=== PATIENT | male | born 1970 | race Caucasian/White ===

== ENCOUNTER 2021-12-13 17:28 | Inpatient (IN) ==
[2021-12-13] MEDS ORDERED: IOPAMIDOL 100 ML BOTTLE IV ONE (17:29)
[2021-12-13] MEDS ORDERED: LACTATED RINGERS 1,000 ML IV ONE (17:48)
[2021-12-13 18:05] LABS: POC Calcium, Ionized 1.07 (1.16-1.32); POC Creatinine 1.2 (0.6-1.2); POC Potassium 4.8 (3.3-5.1)
--- NOTE | 2021-12-13 18:17 | Emergency Department Note ---
HPI General Chief complaint: Fall Stated complaint: fall Time Seen by Provider: 12/13/21 17:29 Source: patient and EMS Mode of arrival: EMS Limitations: no limitations History of Present Illness HPI Narrative: Narrative: Patient presents to the emergency department after ground-level fall. He reports he was plugging on his phone and fell back. He is complaining of lower back pain. Patient is morbidly obese he has diabetes, kidney disease, sleep apnea. Patient was unable to get up so he called EMS. Per EMS the patient was scattered and fecal material. Patient denies hitting his head or loss of consciousness he denies any extremity pain. Patient is hypoxic. He denies regular use of supplemental oxygen, he is supposed to wear CPAP at night for obstructive sleep apnea. Denies known reactive airway disease, CAD, CHF or venous thromboembolism. Related Data Home Medications Medication Instructions Recorded Confirmed calcitriol 0.25 mcg capsule 0.25 mcg PO QDAY cap 05/12/15 07/11/16 Previous Rx's Medication Instructions Recorded Accu-Chek Brigida Plus Meter #1 each NS 05/05/15 (blood-glucose meter) Accu-Chek Softclix Lancets #100 each NS 05/12/15 (lancets) pioglitazone 30 mg tablet 30 mg PO QDAY #90 tab 11/10/15 pravastatin 80 mg tablet 80 mg PO QHS 90 Days #90 tab 01/30/16 (Pravachol) blood sugar diagnostic (Accu-Chek #100 each 04/23/16 Brigida Plus test strp) febuxostat 40 mg tablet (Uloric) 40 mg PO QDAY 90 Days #90 tab 04/23/16 lisinopril 5 mg tablet (Zestril) 5 mg PO QDAY 90 Days #90 tab 04/23/16 magnesium oxide 400 mg (241.3 mg 400 mg PO QDAY #90 tab 04/23/16 magnesium) tablet potassium chloride 10 mEq 10 meq PO QDAY 90 Days #90 tab 04/23/16 tablet,extended release (Klor-Con) cyclobenzaprine 10 mg tablet 10 mg PO TID #20 tab 12/03/18 hydrocodone 5 mg-acetaminophen 325 1 tab PO Q4HP PRN #10 tab 12/03/18 mg tablet Allergies Allergy/AdvReac Type Severity Reaction Status Date / Time penicillin G [PENICILLIN G] Allergy Unknown RASH Verified 07/11/16 16:29 Review of Systems ROS ROS Narrative: Narrative: All systems ED: reviewed and negative except as stated. PFSH Narrative Patient History Narrative: Narrative: Medical/Surgical/Family History All Active Problems (Updated 12/14/21 @ 04:55 by Earl Orozco MD) Low back strain (Acute) Closed T12 fracture (Acute) Hypoxia (Acute) Obesity (Acute) Chronic kidney disease, stage III (moderate) (Chronic) Body mass index (BMI) of 50.0 to 59.9 in adult (Chronic) Hypomagnesemia (Chronic) Hypertensive renal disease (Chronic) Hypertension, essential (Chronic 08/28/12) Secondary hyperparathyroidism of renal origin (Chronic) Morbid obesity (Chronic 04/13/14) Hyperlipidemia (Chronic 08/28/12) Gout (Chronic) Explosive personality disorder (Chronic) Eczema (Chronic) Diabetes mellitus, type II (Chronic 08/28/12) Chronic kidney disease, stage III (moderate) (Chronic 08/28/12) Body mass index 50.0-59.9, adult (Chronic) Neuropathy (Chronic) Nuclear sclerosis (Chronic) Sleep apnea (Chronic) Vitamin D deficiency (Chronic 08/28/12) Bipolar disorder (Chronic) Back pain (Chronic 09/09/13) Anemia in chronic kidney disease (CKD) (Chronic 08/28/12) Medical History (Updated 12/14/21 @ 04:55 by Earl Orozco MD) Acute serous otitis media Anemia in chronic kidney disease (CKD) (08/28/12) Arthralgia Back pain (09/09/13) chr back pain, states started from the time of trauma in the clinic, Will get previous records, ref to PT if needed Bipolar disorder Body mass index (BMI) of 50.0 to 59.9 in adult Body mass index 50.0-59.9, adult Chronic kidney disease, stage III (moderate) (08/28/12) Diabetes mellitus, type II (08/28/12) Eczema Explosive personality disorder Gout Headache Hyperlipidemia (08/28/12) ldl 79, on pravastatin 80mg qhs, continue same, Hypertension, essential (08/28/12) Hypertensive renal disease Hypomagnesemia Leg fracture right Morbid obesity (04/13/14) Neuropathy Nuclear sclerosis Renal insufficiency (07/04/12) Secondary hyperparathyroidism of renal origin Sleep apnea Vitamin D deficiency (08/28/12) Family History (Updated 04/15/15 @ 14:26 by Nicole Cruz) Unknown Cardiac disease Social History Smoking Status: Never smoker Alcohol Intake Frequency: does not drink Substance Use: does not use Exam Narrative Narrative: Narrative: Vital signs noted General: Awake. Alert. No distress. HEENT: Atraumatic, pupils equal round reactive to light Neck: No cervical spinal tenderness in the midline Cardiovascular: RRR. No murmur. No rubs. No gallops. Respiratory: Distant breath sounds Gastrointestinal: Soft. No tenderness Musculoskeletal: Tenderness to the lower lumbar spine, bilateral paraspinal there is midline spinal tenderness as well Skin: No abrasions or lacerations General Limitations: no limitations Course Vital Signs Vital signs: Vital Signs Temperature 99.2 F H 12/13/21 17:30 Pulse Rate 94 H 12/13/21 17:30 Respiratory Rate 28 H 12/13/21 17:30 Blood Pressure 125/91 12/13/21 17:30 Pulse Oximetry (%) 82 L 12/13/21 17:30 Temperature 99.2 F H 12/13/21 17:30 Pulse Rate 29 L 12/14/21 04:13 Respiratory Rate 26 H 12/14/21 04:15 Blood Pressure 114/54 12/14/21 04:13 Pulse Oximetry (%) 97 12/14/21 04:16 MDM MDM Narrative Medical decision making narrative: Narrative: Patient presents with fall he was unable to get up. Upon arrival patient is hypoxic into the low 80s. Patient is morbidly obese. Differential includes but is not limited to CHF, COPD, obesity associated hypoventilation, pulmonary embolism, traumatic musculoskeletal or lung injury. Patient's labs were reviewed. Kidney function appears to be at about patient's baseline. Troponin is negative. CT scan of the brain was negative. Initially there was thoughts that the patient cannot go through the CT scanner. Finally they did bring the patient to the CT scanner his CT scan shows an acute T12 compression fracture that is mild. Patient has significant atelectasis there is no evidence of pulmonary embolism. No infiltrates. Patient's BNP was in the 900s. Patient has been requiring 5 L nasal cannula. Patient will be admitted to the hospitalist for further work-up and evaluation primarily of his hypoxia. Spinal injury is nonoperative and stable. Lab Data Result diagrams: 12/13/21 17:42 Labs: Lab Results 12/13/21 12/13/21 12/13/21 Range/Units 17:42 17:42 17:42 WBC 10.1 (4.5-11.0) K/mcL RBC 4.88 (4.63-6.08) M/mcL Hgb 15.0 (13.7-17.5) g/dL Hct 49.5 (40.1-51.0) % POC Hct (41-55) MCV 101.4 H (80.0-100.0) fL MCH 30.7 (26.0-34.0) pg MCHC 30.3 L (31.0-36.0) g/dL RDW 17.1 H (11.5-14.5) % Plt Count 339 (140-440) K/mcL MPV 8.7 (7.4-10.4) fL Neut % (Auto) 70.9 (38.0-78.0) % Lymph % (Auto) 22.2 (15.5-49.0) % [place] % (Auto) 5.4 (1.0-12.0) % Eos % (Auto) 1.1 (0.0-7.0) % Baso % (Auto) 0.4 (0.0-2.0) % Lymph # (Auto) 2.24 (1.50-4.80) K/mcL [place] # (Auto) 0.54 (0.10-0.90) K/mcL Eos # (Auto) 0.11 (0.00-0.70) K/mcL Baso # (Auto) 0.04 (0.00-0.30) K/mcL Absolute Neutrophils 7.14 (1.80-8.00) K/mcL PT 12.8 (11.9-14.5) sec INR 0.9 (0.9-1.1) D-Dimer (0.27-0.50) ug/mL ABG Methemoglobin (0.4-1.5) % VBG pH (7.32-7.42) U VBG pCO2 (41.0-51.0) mmHg VBG pO2 (25.0-40.0) mmHg VBG HCO3 (24.0-28.0) mmol/L VBG Total CO2 (25.0-29.0) mmol/L VBG O2 Saturation (40.0-70.0) % VBG Base Excess (-2-3) Carboxyhemoglobin (0.0-1.5) % THgb Total Hemoglobin (13.5-16.5) gm/Dl POC Sodium (133-145) POC Potassium (3.3-5.1) POC Chloride (96-108) POC Total CO2 (22-30) POC BUN (6-20) POC Creatinine (0.6-1.2) POC Glucose (70-105) POC WB Ioniz Calcium (1.16-1.32) Total Bilirubin 0.5 (0.1-1.0) mg/dL Direct Bilirubin < 0.2 (0-0.3) mg/dL AST 24 (<40) U/L ALT 18 (<40) U/L Alkaline Phosphatase 101 (39-117) U/L Troponin T (<0.03) ng/mL NT-Pro-B Natriuret Pep 990.8 H (<125.0) pg/mL Total Protein 7.7 (5.9-8.4) gm/dL Albumin 3.6 (3.2-5.2) gm/dL Globulin 4.1 H (2.2-3.7) gm/dL Urine Color Urine Appearance (Clear) Urine pH (5.0-9.0) Ur Specific [place] (1.000-1.035) Urine Protein (Negative) mg/dL Urine Glucose (UA) (Negative) mg/dL Urine Ketones (Negative) mg/dL Urine Occult Blood (Negative) mg/dL Urine Nitrate (Negative) Urine Bilirubin (Negative) mg/dL Urine Urobilinogen mg/dL Ur Leukocyte Esterase (Negative) /uL Urine RBC (0-3) /hpf Urine WBC (0-4) /hpf Ur Squamous Epith Cells (0-4) /hpf Urine Bacteria (0) /hpf Urine Mucus (None) /hpf Ur Culture Indicated? POC Troponin I 12/13/21 12/13/21 12/13/21 Range/Units 17:42 17:42 17:42 WBC (4.5-11.0) K/mcL RBC (4.63-6.08) M/mcL Hgb (13.7-17.5) g/dL Hct (40.1-51.0) % POC Hct (41-55) MCV (80.0-100.0) fL MCH (26.0-34.0) pg MCHC (31.0-36.0) g/dL RDW (11.5-14.5) % Plt Count (140-440) K/mcL MPV (7.4-10.4) fL Neut % (Auto) (38.0-78.0) % Lymph % (Auto) (15.5-49.0) % [place] % (Auto) (1.0-12.0) % Eos % (Auto) (0.0-7.0) % Baso % (Auto) (0.0-2.0) % Lymph # (Auto) (1.50-4.80) K/mcL [place] # (Auto) (0.10-0.90) K/mcL Eos # (Auto) (0.00-0.70) K/mcL Baso # (Auto) (0.00-0.30) K/mcL Absolute Neutrophils (1.80-8.00) K/mcL PT (11.9-14.5) sec INR (0.9-1.1) D-Dimer 4.99 H (0.27-0.50) ug/mL ABG Methemoglobin 0.3 L (0.4-1.5) % VBG pH 7.35 (7.32-7.42) U VBG pCO2 58.9 H (41.0-51.0) mmHg VBG pO2 82.6 H (25.0-40.0) mmHg VBG HCO3 31.8 H (24.0-28.0) mmol/L VBG Total CO2 33.6 H (25.0-29.0) mmol/L VBG O2 Saturation 90.7 H (40.0-70.0) % VBG Base Excess 4 H (-2-3) Carboxyhemoglobin 4.6 H (0.0-1.5) % THgb Total Hemoglobin 16.0 (13.5-16.5) gm/Dl POC Sodium (133-145) POC Potassium (3.3-5.1) POC Chloride (96-108) POC Total CO2 (22-30) POC BUN (6-20) POC Creatinine (0.6-1.2) POC Glucose (70-105) POC WB Ioniz Calcium (1.16-1.32) Total Bilirubin (0.1-1.0) mg/dL Direct Bilirubin (0-0.3) mg/dL AST (<40) U/L ALT (<40) U/L Alkaline Phosphatase (39-117) U/L Troponin T < 0.01 (<0.03) ng/mL NT-Pro-B Natriuret Pep (<125.0) pg/mL Total Protein (5.9-8.4) gm/dL Albumin (3.2-5.2) gm/dL Globulin (2.2-3.7) gm/dL Urine Color Urine Appearance (Clear) Urine pH (5.0-9.0) Ur Specific [place] (1.000-1.035) Urine Protein (Negative) mg/dL Urine Glucose (UA) (Negative) mg/dL Urine Ketones (Negative) mg/dL Urine Occult Blood (Negative) mg/dL Urine Nitrate (Negative) Urine Bilirubin (Negative) mg/dL Urine Urobilinogen mg/dL Ur Leukocyte Esterase (Negative) /uL Urine RBC (0-3) /hpf Urine WBC (0-4) /hpf Ur Squamous Epith Cells (0-4) /hpf Urine Bacteria (0) /hpf Urine Mucus (None) /hpf Ur Culture Indicated? POC Troponin I 12/13/21 12/13/21 12/13/21 Range/Units 18:00 18:06 22:25 WBC (4.5-11.0) K/mcL RBC (4.63-6.08) M/mcL Hgb (13.7-17.5) g/dL Hct (40.1-51.0) % POC Hct 49.0 (41-55) MCV (80.0-100.0) fL MCH (26.0-34.0) pg MCHC (31.0-36.0) g/dL RDW (11.5-14.5) % Plt Count (140-440) K/mcL MPV (7.4-10.4) fL Neut % (Auto) (38.0-78.0) % Lymph % (Auto) (15.5-49.0) % [place] % (Auto) (1.0-12.0) % Eos % (Auto) (0.0-7.0) % Baso % (Auto) (0.0-2.0) % Lymph # (Auto) (1.50-4.80) K/mcL [place] # (Auto) (0.10-0.90) K/mcL Eos # (Auto) (0.00-0.70) K/mcL Baso # (Auto) (0.00-0.30) K/mcL Absolute Neutrophils (1.80-8.00) K/mcL PT (11.9-14.5) sec INR (0.9-1.1) D-Dimer (0.27-0.50) ug/mL ABG Methemoglobin (0.4-1.5) % VBG pH (7.32-7.42) U VBG pCO2 (41.0-51.0) mmHg VBG pO2 (25.0-40.0) mmHg VBG HCO3 (24.0-28.0) mmol/L VBG Total CO2 (25.0-29.0) mmol/L VBG O2 Saturation (40.0-70.0) % VBG Base Excess (-2-3) Carboxyhemoglobin (0.0-1.5) % THgb Total Hemoglobin (13.5-16.5) gm/Dl POC Sodium 143 (133-145) POC Potassium 4.8 (3.3-5.1) POC Chloride 96 (96-108) POC Total CO2 38.0 H (22-30) POC BUN 17 (6-20) POC Creatinine 1.2 (0.6-1.2) POC Glucose 173 H (70-105) POC WB Ioniz Calcium 1.07 L (1.16-1.32) Total Bilirubin (0.1-1.0) mg/dL Direct Bilirubin (0-0.3) mg/dL AST (<40) U/L ALT (<40) U/L Alkaline Phosphatase (39-117) U/L Troponin T (<0.03) ng/mL NT-Pro-B Natriuret Pep (<125.0) pg/mL Total Protein (5.9-8.4) gm/dL Albumin (3.2-5.2) gm/dL Globulin (2.2-3.7) gm/dL Urine Color Yellow Urine Appearance Hazy A (Clear) Urine pH 8.0 (5.0-9.0) Ur Specific [place] 1.017 (1.000-1.035) Urine Protein 30 A (Negative) mg/dL Urine Glucose (UA) Negative (Negative) mg/dL Urine Ketones Negative (Negative) mg/dL Urine Occult Blood Negative (Negative) mg/dL Urine Nitrate Negative (Negative) Urine Bilirubin Negative (Negative) mg/dL Urine Urobilinogen 2.0 A mg/dL Ur Leukocyte Esterase Negative (Negative) /uL Urine RBC 1 (0-3) /hpf Urine WBC 2 (0-4) /hpf Ur Squamous Epith Cells 4 (0-4) /hpf Urine Bacteria None (0) /hpf Urine Mucus Few A (None) /hpf Ur Culture Indicated? No POC Troponin I 0.01 ED POC Tests ED POC Tests: MATTHEW - SARS Antigen Negative EKG Data EKG #1: EKG attestation: Yes I reviewed and interpreted this EKG., Yes There are no EKG findings of acute coronary syndrome and Yes This EKG will be read by cigarette paper tester EKG results narrative: EKG per my interpretation shows a sinus rhythm with a heart rate of 84, normal axis, delayed R wave progression no criteria for STEMI there is T wave inversions in the anterior leads Discharge Plan Patient/Caregiver Discharge Instructions Pt seen by [facility] VAT TENDER/PA only: No Clinical Impression: Closed T12 fracture, Hypoxia, Obesity Patient Disposition: Xfer As Inpt ([facility]) Condition: Serious Discharge Date/Time: 12/14/21 03:38 Discharge Comment: to room 118 @[id number]
[2021-12-13 18:18] LABS: ABG Methemoglobin 0.3 % (0.4-1.5); VBG Base Excess 4 (-2-3); VBG HCO3 31.8 mmol/L (24.0-28.0); VBG Oxygen Saturation 90.7 % (40.0-70.0); VBG PCO2 58.9 mmHg (41.0-51.0); VBG PH 7.35 U (7.32-7.42); VBG PO2 82.6 mmHg (25.0-40.0); VBG Total CO2 33.6 mmol/L (25.0-29.0)
[2021-12-13 18:22] LABS: Basophils # (Auto) 0.04 K/mcL (0.00-0.30); Basophils % (Auto) 0.4 % (0.0-2.0); Eosinophils # (Auto) 0.11 K/mcL (0.00-0.70); Eosinophils % (Auto) 1.1 % (0.0-7.0); Hematocrit 49.5 % (40.1-51.0); Lymphocytes # (Auto) 2.24 K/mcL (1.50-4.80); Lymphocytes % (Auto) 22.2 % (15.5-49.0); Mean Cell Volume 101.4 fL (80.0-100.0); Mean Corpuscular HGB Conc 30.3 g/dL (31.0-36.0); Mean Platelet Volume 8.7 fL (7.4-10.4); Monocytes # (Auto) 0.54 K/mcL (0.10-0.90); Monocytes % (Auto) 5.4 % (1.0-12.0); Neutrophils % (Auto) 70.9 % (38.0-78.0); Platelet Count 339 K/mcL (140-440); RBC 4.88 M/mcL (4.63-6.08); Red Cell Distribution Width 17.1 % (11.5-14.5); WBC 10.1 K/mcL (4.5-11.0)
[2021-12-13 18:43] LABS: proBNP 990.8 pg/mL (<125.0)
[2021-12-13 18:45] LABS: ALT/SGPT 18 U/L (<40); AST/SGOT 24 U/L (<40); Albumin 3.6 gm/dL (3.2-5.2); Alkaline Phosphatase 101 U/L (39-117); Bilirubin,Direct < 0.2 mg/dL (0-0.3); Bilirubin,Total 0.5 mg/dL (0.1-1.0); Globulin 4.1 gm/dL (2.2-3.7)
[2021-12-13 20:48] LABS: INR 0.9 (0.9-1.1); Prothrombin Time 12.8 sec (11.9-14.5)
[2021-12-13 23:40] LABS: Appearance,Urine HAZY (Clear); Bilirubin,Urine Negative (Negative); Color,Urine YELLOW; Culture Indicated,Urine No; Glucose,Urine (UA) Negative (Negative); Ketones,Urine Negative (Negative); Leukocyte Esterase,Urine Negative /uL (Negative); Mucus,Urine FEW /hpf; Nitrate,Urine Negative (Negative); Protein,Urine 30 mg/dL (Negative); Specific Gravity,Urine 1.017 (1.000-1.035); Urine Blood Negative (Negative); Urine RBC 1 /hpf (0-3); Urine Squamous Epithelial Cell 4 /hpf (0-4); Urine WBC 2 /hpf (0-4)
--- NOTE | 2021-12-14 00:56 | XRay Report ---
CLINICAL INFORMATION: Trauma-fall COMPARISON: None. FINDINGS: The lumbar spine is normal in curvature and alignment. Mild acute T12 compression fracture features 20% loss of vertebral height. Fracture involves predominantly the inferior endplate. Alignment is anatomic. Disks maintain normal height. SI joints are normal. No soft tissue abnormality. IMPRESSION: Mild acute T12 compression fracture. Anatomic alignment. Interpreted and Authenticated by: Davide Fontaine 12/14/21
--- NOTE | 2021-12-14 01:02 | XRay Report ---
CLINICAL INFORMATION: Trauma-fall COMPARISON: None. TECHNIQUE: Portable FINDINGS: The heart size, mediastinum and pulmonary vessels are unremarkable. Moderate extrapleural hematoma seen over the lateral left mid and lower thorax. Moderate vague airspace disease throughout the left lung could indicate aspiration or contusion. Subsegmental atelectasis seen in the right lung apex. No fracture identified. IMPRESSION: Moderate (12 cm) extrapleural hematoma in the left lateral left mid and lower thorax. Vague airspace disease throughout the left lung could represent aspiration or contusion. Interpreted and Authenticated by: Davide Fontaine 12/14/21
--- NOTE | 2021-12-14 01:07 | Cat Scan Report ---
CLINICAL INFORMATION: Trauma COMPARISON: None. TECHNIQUE: 2.5 mm helical slices were obtained in the skull base to vertex. Following reconstruction, axial reformatted images were reviewed at bone and parenchymal windows. The exam was performed using radiation dose optimization techniques including, but not limited to, automated exposure control, adjustment of the mA and/or kV according to patient size and use of iterative reconstruction technique. FINDINGS: The ventricles, sulci, fissures, and cisterns are mildly enlarged compatible with mild atrophy more than expected for age.. No extra-axial fluid collections are identified. Vague 16 mm low-attenuation region in the deep posterior left frontal white matter is likely ischemic The cerebrum, brainstem and cerebellum are, otherwise, unremarkable. There is no evidence of hemorrhage, mass effect, or edema. Bone windows show no osseous abnormality. IMPRESSION: Mild atrophy. Small region of ischemia in the posterior deep left frontal white matter. No intracerebral hemorrhage or other posttraumatic change Interpreted and Authenticated by: Davide Fontaine 12/14/21
--- NOTE | 2021-12-14 02:07 | Cat Scan Report ---
CLINICAL INFORMATION: Trauma-fall COMPARISON: Abdomen and pelvic CT 12/03/2018 TECHNIQUE: Following enteric contrast, 80 cc of Isovue-370 were injected intravenously, and 60 seconds later, 0.625 mm helical slices were obtained from the mid heart through the subtrochanteric regions. Following reconstruction, 2.5 mm sagittal, coronal and axial reformatted images were processed and reviewed at bone, lung and soft tissue windows. Five minutes later, 0.625 mm helical slices were obtained from the mid heart through the kidneys and viewed at soft tissue windows.The exam was performed using radiation dose optimization techniques including, but not limited to, automated exposure control, adjustment of the mA and/or kV according to patient size and use of iterative reconstruction technique. FINDINGS: The lung bases show subsegmental atelectasis. No effusions. The visualized heart is grossly normal. Abdominal images show the gallbladder and bile ducts, liver, adrenal glands, spleen, pancreas and aorta, including aortic branches, are normal in size, configuration and attenuation without focal lesion. There is no free air, free fluid or adenopathy. Severe atrophy of the left kidney. On today's examination, it is 5.4 cm in length. On the 2019 exam, it was 5.6 cm in length. There has been slight progression. Right kidney is lower limits of normal in size 9 cm. Small cysts in the right kidney are stable. Pelvic images show normal urinary bladder, prostate and seminal vesicles.. The stomach, small bowel, appendix region and large bowel are grossly normal. Bone windows mild acute T12 compression fracture. This involves the inferior endplate. There is no extension into the pedicles and facets or the remainder the posterior, since appears to be stable. IMPRESSION: 1. No intra-abdominal posttraumatic change. 2. Mild acute T12 compression fracture with 10% loss of vertebral height. There is no extension into the pedicles or posterior elements. This appears to be stable and would normally be treated nonsurgically. 3. Severe atrophy of the left kidney which has worsened slightly since the comparison examination three years ago. Right kidney at the lower limits of normal in size. Interpreted and Authenticated by: Davide Fontaine 12/14/21
--- NOTE | 2021-12-14 02:11 | Cat Scan Report ---
CLINICAL INFORMATION: Trauma COMPARISON: None. TECHNIQUE: 80ml of Isovue-370 were injected intravenously. Using SmartPrep to maximize pulmonary artery opacification, .625mm helical slices were obtained from the lung apices through the lung bases. Following reconstruction, 2.5 mm sagittal, coronal, and axial reformations were processed. The exam was reviewed at mediastinal, lung, and bone windows. The exam was performed using radiation dose optimization techniques including, but not limited to, automated exposure control, adjustment of the mA and/or kV according to patient size and use of iterative reconstruction technique. FINDINGS: Pulmonary parenchymal windows moderate subsegmental atelectasis in the left lower lobe and mild subsegmental atelectasis in the inferior right lower lobe. There is complete atelectasis of the apical posterior segment of the right upper lobe. There are no effusions or pneumothorax. Moderate extrapleural fat is noted bilaterally particularly in the left lower lobe region. This mimiced an extrapleural hematoma on the plain film. There is no evidence of hemorrhage. Mediastinal windows show the heart is grossly normal in size and configuration. The pulmonary arteries are normal diameter and well-opacified without evidence of embolus. Thoracic aorta is also normal diameter and well-opacified. There is no adenopathy in the mediastinal, hilar or axillary regions. Esophagus is grossly normal. The thyroid is unremarkable. Bones and soft tissues the chest wall are normal. Images through the superior abdomen are unremarkable. IMPRESSION: 1. No acute posttraumatic change. Specifically, no evidence of extrapleural hematoma in the left mid and lower thorax which was suspected on plain film. The patient has extensive extrapleural fat which created increased density in this region. 2. Complete atelectasis in the posterior segment right upper lobe. Subsegmental atelectasis both posterior lower lobes. Interpreted and Authenticated by: Davide Fontaine 12/14/21
[2021-12-14] MEDS ORDERED: ONDANSETRON 4 MG/2 ML VIAL IV PRN (02:33)
[2021-12-14] MEDS ORDERED: ACETAMINOPHEN 325 MG TABLET PO PRN (02:33)
--- NOTE | 2021-12-14 07:00 | EKG ---
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 Measurements Intervals [place] Rate: 84 P: 159 HI: 97 QRS: 3 QRSD: 88 T: 30 QT: 374 QTc: 443 Interpretive Statements Sinus or ectopic atrial rhythm Short HI interval Low voltage, precordial leads Nonspecific T abnormalities, anterior leads Electronically Signed On 12-14-2021 6:59:45 PDT by Emigdio Doyle D.O. /store/[id number]
[2021-12-14] MEDS ORDERED: DEXTROSE 50% 50 ML VIAL IV PRN (08:58)
[2021-12-14] MEDS ORDERED: DEXTROSE 31 GM ORAL.SUSP PO PRN (08:58)
--- NOTE | 2021-12-14 09:11 | Internal Med History&Physical ---
HPI History of Present Illness Patient information: Note initiated : 12/14/21 at 9:10 am Service Date, if different from initiated Date: [] Patient: Gary Mahmood a 51 y/o M admitted on 12/14/21 for fall. Chief Complaint: [] History of present illness: Mr. Mahmood is a 51 year old male with a history of hypertension, hyperlipidemia, type 2 diabetes mellitus, chronic kidney disease stage III, obesity, obstructive sleep apnea currently not compliant with CPAP, probable obesity hypoventilation syndrome who fell and was not able to get up. The patient presented to the emergency department where he was found to have an ox requirement of 5 L/min. Work-up included a CTA chest and CT abdomen pelvis which did not show any evidence of a pulmonary embolus or intra abdominal posttraumatic changes however did show a mild acute T12 compression fracture with 10% loss of vertebral height as well as complete atelectasis in the posterior segment of the right upper lobe and subsegmental atelectasis in both posterior lower lobes. The CT scans also showed atrophy of the left kidney which is not new however progressed since the last available CT image 3 years prior. The patient was admitted for a new oxygen requirement, his oxygen requirement was weaned down to 3.5 L/min. A venous blood gas revealed a pH of 7.35, PCO2 of 58.9. the patient says that he has not been using his CPAP machine because there are not enough electrical outlets in the apartment where he is living. The patient does have significant back pain in the T12 area which is more painful when he takes deep breathing. Review of systems Constitutional: no fever, fatigue, or weight loss Eyes: no vision changes or pain Cardiovascular: no chest pain, no palpitations Respiratory: Dyspnea on exertion, pleuritic back pain. Gastrointestinal: no abdominal pain, no nausea, vomiting, or diarrhea Genitourinary: no dysuria or difficulty voiding Musculoskeletal: Positive for back pain in the T12 area. Integumentary: no skin lesion or wound Neurological: no focal weakness or numbness Psychiatric: no anxiety or depression Physical exam General: Morbidly obese male in no apparent distress Head: Atraumatic, normal inspection. Eyes: normal appearance, no scleral icterus. Neck: full ROM Respiratory: Nasal cannula oxygen, no respiratory distress. Cardiovascular: normal rate and rhythm, S1, S2. GI/Abdominal: soft, nontender, no guarding. Extremities: Tenderness to palpation in mid back region. Neurological: CN II-XII intact, intact motor, intact sensation. Psychiatric: normal mood. Skin: warm, normal color PFSH PFSH All Active Problems (Updated 12/14/21 @ 04:55 by Earl Orozco MD) Low back strain (Acute) Closed T12 fracture (Acute) Hypoxia (Acute) Obesity (Acute) Chronic kidney disease, stage III (moderate) (Chronic) Body mass index (BMI) of 50.0 to 59.9 in adult (Chronic) Hypomagnesemia (Chronic) Hypertensive renal disease (Chronic) Hypertension, essential (Chronic 08/28/12) Secondary hyperparathyroidism of renal origin (Chronic) Morbid obesity (Chronic 04/13/14) Hyperlipidemia (Chronic 08/28/12) Gout (Chronic) Explosive personality disorder (Chronic) Eczema (Chronic) Diabetes mellitus, type II (Chronic 08/28/12) Chronic kidney disease, stage III (moderate) (Chronic 08/28/12) Body mass index 50.0-59.9, adult (Chronic) Neuropathy (Chronic) Nuclear sclerosis (Chronic) Sleep apnea (Chronic) Vitamin D deficiency (Chronic 08/28/12) Bipolar disorder (Chronic) Back pain (Chronic 09/09/13) Anemia in chronic kidney disease (CKD) (Chronic 08/28/12) Medical History (Updated 12/14/21 @ 04:55 by Earl Orozco MD) Acute serous otitis media Anemia in chronic kidney disease (CKD) (08/28/12) Arthralgia Back pain (09/09/13) chr back pain, states started from the time of trauma in the clinic, Will get previous records, ref to PT if needed Bipolar disorder Body mass index (BMI) of 50.0 to 59.9 in adult Body mass index 50.0-59.9, adult Chronic kidney disease, stage III (moderate) (08/28/12) Diabetes mellitus, type II (08/28/12) Eczema Explosive personality disorder Gout Headache Hyperlipidemia (08/28/12) ldl 79, on pravastatin 80mg qhs, continue same, Hypertension, essential (08/28/12) Hypertensive renal disease Hypomagnesemia Leg fracture right Morbid obesity (04/13/14) Neuropathy Nuclear sclerosis Renal insufficiency (07/04/12) Secondary hyperparathyroidism of renal origin Sleep apnea Vitamin D deficiency (08/28/12) Family History (Updated 04/15/15 @ 14:26 by Nicole Cruz) Unknown Cardiac disease Social History marital status: single alcohol intake frequency: does not drink substance use type: does not use MEDS/ALLERGIES Home Medications and Allergies Home Medications Medication Instructions Recorded Confirmed Type Accu-Chek Brigida Plus Meter #1 each NS 05/05/15 07/11/16 Rx (blood-glucose meter) Accu-Chek Softclix Lancets #100 each NS 05/12/15 07/11/16 Rx (lancets) calcitriol 0.25 mcg capsule 0.25 mcg PO QDAY cap 05/12/15 07/11/16 History pioglitazone 30 mg tablet 30 mg PO QDAY #90 tab 11/10/15 07/11/16 Rx pravastatin 80 mg tablet 80 mg PO QHS 90 Days #90 tab 01/30/16 07/11/16 Rx (Pravachol) blood sugar diagnostic (Accu-Chek #100 each 04/23/16 07/11/16 Rx Brigida Plus test strp) febuxostat 40 mg tablet (Uloric) 40 mg PO QDAY 90 Days #90 tab 04/23/16 07/11/16 Rx lisinopril 5 mg tablet (Zestril) 5 mg PO QDAY 90 Days #90 tab 04/23/16 07/11/16 Rx magnesium oxide 400 mg (241.3 mg 400 mg PO QDAY #90 tab 04/23/16 07/11/16 Rx magnesium) tablet potassium chloride 10 mEq 10 meq PO QDAY 90 Days #90 tab 04/23/16 07/11/16 Rx tablet,extended release (Klor-Con) cyclobenzaprine 10 mg tablet 10 mg PO TID #20 tab 12/03/18 Rx hydrocodone 5 mg-acetaminophen 325 1 tab PO Q4HP PRN #10 tab 12/03/18 Rx mg tablet Allergies Allergy/AdvReac Type Severity Reaction Status Date / Time penicillin G [PENICILLIN G] Allergy Unknown RASH Verified 07/11/16 16:29 EXAM Constitutional Vitals: Temp Pulse Resp BP Pulse Ox 97.4 F 92 H 24 H 114/63 94 12/14/21 07:57 12/14/21 07:57 12/14/21 07:57 12/14/21 07:57 12/14/21 07:57 DATA Data Completed and Pending Labs: Labs from last 24 hours 12/13/21 12/13/21 12/13/21 22:25 18:06 18:00 WBC RBC Hgb Hct POC Hct 49.0 MCV MCH MCHC RDW Plt Count MPV Neut % (Auto) Lymph % (Auto) [place] % (Auto) Eos % (Auto) Baso % (Auto) Lymph # (Auto) [place] # (Auto) Eos # (Auto) Baso # (Auto) Absolute Neutrophils PT INR D-Dimer ABG Methemoglobin VBG pH VBG pCO2 VBG pO2 VBG HCO3 VBG Total CO2 VBG O2 Saturation VBG Base Excess Carboxyhemoglobin Total Hemoglobin POC Sodium 143 POC Potassium 4.8 POC Chloride 96 POC Total CO2 38.0 H POC BUN 17 POC Creatinine 1.2 POC Glucose 173 H POC WB Ioniz Calcium 1.07 L Total Bilirubin Direct Bilirubin AST ALT Alkaline Phosphatase Troponin T NT-Pro-B Natriuret Pep Total Protein Albumin Globulin Urine Color Yellow Urine Appearance Hazy A Urine pH 8.0 Ur Specific [place] 1.017 Urine Protein 30 A Urine Glucose (UA) Negative Urine Ketones Negative Urine Occult Blood Negative Urine Nitrate Negative Urine Bilirubin Negative Urine Urobilinogen 2.0 A Ur Leukocyte Esterase Negative Urine RBC 1 Urine WBC 2 Ur Squamous Epith Cells 4 Urine Bacteria None Urine Mucus Few A Ur Culture Indicated? No POC Troponin I 0.01 12/13/21 12/13/21 12/13/21 17:42 17:42 17:42 WBC RBC Hgb Hct POC Hct MCV MCH MCHC RDW Plt Count MPV Neut % (Auto) Lymph % (Auto) [place] % (Auto) Eos % (Auto) Baso % (Auto) Lymph # (Auto) [place] # (Auto) Eos # (Auto) Baso # (Auto) Absolute Neutrophils PT INR D-Dimer 4.99 H ABG Methemoglobin 0.3 L VBG pH 7.35 VBG pCO2 58.9 H VBG pO2 82.6 H VBG HCO3 31.8 H VBG Total CO2 33.6 H VBG O2 Saturation 90.7 H VBG Base Excess 4 H Carboxyhemoglobin 4.6 H Total Hemoglobin 16.0 POC Sodium POC Potassium POC Chloride POC Total CO2 POC BUN POC Creatinine POC Glucose POC WB Ioniz Calcium Total Bilirubin Direct Bilirubin AST ALT Alkaline Phosphatase Troponin T < 0.01 NT-Pro-B Natriuret Pep Total Protein Albumin Globulin Urine Color Urine Appearance Urine pH Ur Specific [place] Urine Protein Urine Glucose (UA) Urine Ketones Urine Occult Blood Urine Nitrate Urine Bilirubin Urine Urobilinogen Ur Leukocyte Esterase Urine RBC Urine WBC Ur Squamous Epith Cells Urine Bacteria Urine Mucus Ur Culture Indicated? POC Troponin I 12/13/21 12/13/21 12/13/21 17:42 17:42 17:42 WBC 10.1 RBC 4.88 Hgb 15.0 Hct 49.5 POC Hct MCV 101.4 H MCH 30.7 MCHC 30.3 L RDW 17.1 H Plt Count 339 MPV 8.7 Neut % (Auto) 70.9 Lymph % (Auto) 22.2 [place] % (Auto) 5.4 Eos % (Auto) 1.1 Baso % (Auto) 0.4 Lymph # (Auto) 2.24 [place] # (Auto) 0.54 Eos # (Auto) 0.11 Baso # (Auto) 0.04 Absolute Neutrophils 7.14 PT 12.8 INR 0.9 D-Dimer ABG Methemoglobin VBG pH VBG pCO2 VBG pO2 VBG HCO3 VBG Total CO2 VBG O2 Saturation VBG Base Excess Carboxyhemoglobin Total Hemoglobin POC Sodium POC Potassium POC Chloride POC Total CO2 POC BUN POC Creatinine POC Glucose POC WB Ioniz Calcium Total Bilirubin 0.5 Direct Bilirubin < 0.2 AST 24 ALT 18 Alkaline Phosphatase 101 Troponin T NT-Pro-B Natriuret Pep 990.8 H Total Protein 7.7 Albumin 3.6 Globulin 4.1 H Urine Color Urine Appearance Urine pH Ur Specific [place] Urine Protein Urine Glucose (UA) Urine Ketones Urine Occult Blood Urine Nitrate Urine Bilirubin Urine Urobilinogen Ur Leukocyte Esterase Urine RBC Urine WBC Ur Squamous Epith Cells Urine Bacteria Urine Mucus Ur Culture Indicated? POC Troponin I A/P Narrative A/P Narrative: Assessment: 51 year old male with a history of hypertension, hyperlipidemia, type 2 diabetes mellitus, chronic kidney disease stage III, obesity, obstructive sleep apnea currently not compliant with CPAP, probable obesity hypoventilation syndrome who had a fall and was not able to get up, the patient was brought to the emergency department where he was found to have a acute T12 compression fracture and a new oxygen requirement. The cause of hypoxia is likely atelectasis related to restrictive lung disease secondary to morbid obesity and painful respiration secondary to the acute T12 compression fracture. No evidence of an infectious process, no evidence of a pulmonary embolus on CTA chest. Does not appear to be in congestive heart failure. #Acute hypoxic respiratory failure likely due to atelectasis #Acute T12 compression fracture #Hypercapnic respiratory failure, likely chronic #Obesity hypoventilation syndrome #Severe obstructive sleep apnea, currently not compliant with CPAP #Type 2 diabetes mellitus #Essential hypertension #Chronic kidney disease stage III, stable #Obesity BMI 63 Plan -BiPAP today to CPAP with naps and bedtime. -Oxygen supplementation, wean as able. -Nonopioid analgesics for now, may need to add opioids. -Repeat VBG after BiPAP. -Follow-up pending [place] PCR. -Correction Humalog SSImedium. -Home medication reconciliation. -Consider transthoracic echocardiogram. -Consistent carbohydrate diet. -PT consult, consider TLSO brace. -DVT prophylaxis: Lovenox -CODE STATUS: Full -Disposition: TBD Time Spent With Patient Time: Total time spent is greater than 50% in coordination of care (as documented) at patient's floor/unit and/or counseling patient: QUALITY VTE Deep Vein Thrombosis/Pulmonary Embolism Present on Admission: No
[2021-12-14] MEDS: ACETAMINOPHEN 500 MG TABLET PO SCH ×2 (09:19→16:17)
[2021-12-14] MEDS: KETOROLAC 30 MG/ML VIAL IV PRN ×2 (09:24→16:34)
[2021-12-14] MEDS: ENOXAPARIN 40 MG/0.4 ML SYRINGE SQ SCH ×2 (10:50→20:22)
[2021-12-14] MEDS: INSULIN LISPRO 1 UNIT/0.01 ML UNIT SQ SCH ×3 (11:52→20:23)
[2021-12-14 14:38] LABS: ABG Methemoglobin 0.4 % (0.4-1.5); Total Hemoglobin 14.9 gm/Dl (13.5-16.5); VBG Base Excess 8 (-2-3); VBG HCO3 38.4 mmol/L (24.0-28.0); VBG PCO2 81.6 mmHg (41.0-51.0); VBG PH 7.29 U (7.32-7.42); VBG PO2 58.1 mmHg (25.0-40.0); VBG Total CO2 40.9 mmol/L (25.0-29.0)
[2021-12-14 16:42] LABS: ABG Methemoglobin 0.2 % (0.4-1.5); Total Hemoglobin 15.2 gm/Dl (13.5-16.5); VBG Base Excess 8 (-2-3); VBG Oxygen Saturation 83.4 % (40.0-70.0); VBG PCO2 63.9 mmHg (41.0-51.0); VBG PH 7.37 U (7.32-7.42); VBG PO2 58.3 mmHg (25.0-40.0)
[2021-12-15] MEDS: ACETAMINOPHEN 500 MG TABLET PO SCH ×3 (00:52→17:32)
[2021-12-15] MEDS: KETOROLAC 30 MG/ML VIAL IV PRN ×2 (02:40→08:33)
[2021-12-15 06:38] LABS: Blood Urea Nitrogen 20 mg/dL (6-20); Calcium 8.4 mg/dL (8.6-10.4); Carbon Dioxide 32 mmol/L (22-30); Chloride 98 mmol/L (96-108); Glomerular Filtration Rate 70; Glucose 92 mg/dL (70-105); Phosphorous 3.7 mg/dL (2.5-4.5)
[2021-12-15] MEDS: INSULIN LISPRO 1 UNIT/0.01 ML UNIT SQ SCH ×4 (07:17→21:06)
[2021-12-15] MEDS: ENOXAPARIN 40 MG/0.4 ML SYRINGE SQ SCH ×2 (08:32→21:05)
[2021-12-15] MEDS: FUROSEMIDE 20 MG TABLET PO SCH (08:34)
[2021-12-15] MEDS: ESCITALOPRAM 10 MG TABLET PO SCH (08:34)
--- NOTE | 2021-12-15 11:38 | Internal Med Progress Note ---
SUBJECTIVE Subjective Patient information: Note initiated : 12/15/21 at 11:34 am Service Date, if different from initiated Date: [] Patient: Gary Mahmood a 51 y/o M admitted on 12/14/21 for fall. Chief Complaint: [] Interval history: Mr. Mahmood is a 51 year old male with a history of hypertension, hyperlipidemia, type 2 diabetes mellitus, chronic kidney disease stage III, obesity, obstructive sleep apnea currently not compliant with CPAP, probable obesity hypoventilation syndrome who fell and was not able to get up. The patient presented to the emergency department where he was found to have an ox requirement of 5 L/min. Work-up included a CTA chest and CT abdomen pelvis which did not show any evidence of a pulmonary embolus or intra abdominal posttraumatic changes however did show a mild acute T12 compression fracture with 10% loss of vertebral height as well as complete atelectasis in the posterior segment of the right upper lobe and subsegmental atelectasis in both posterior lower lobes. The CT scans also showed atrophy of the left kidney which is not new however progressed since the last available CT image 3 years prior. The patient was admitted for a new oxygen requirement, his oxygen requirement was weaned down to 3.5 L/min. A venous blood gas revealed a pH of 7.35, PCO2 of 58.9. the patient says that he has not been using his CPAP machine because there are not enough electrical outlets in the apartment where he is living. The patient does have significant back pain in the T12 area which is more painful when he takes deep breathing. 12/15 Mental status improved, tolerated CPAP better overnight. Is just into heated high flow nasal cannula oxygen in the morning with mostly high flow as the patient prefers this over noninvasive ventilation. Potassium mildly elevated on morning labs, rechecking in the afternoon. Started oxycodone as needed for back pain secondary to T12 vertebral compression fracture. [place] PCR was negative. Ordered respiratory panel PCR. Physical exam General: Morbidly obese male in no apparent distress Head: Atraumatic, normal inspection. Eyes: normal appearance, no scleral icterus. Neck: full ROM Respiratory: Heated high flow nasal cannula oxygen, no respiratory distress. Cardiovascular: normal rate and rhythm, S1, S2. GI/Abdominal: soft, nontender, no guarding. Extremities: Tenderness to palpation in mid back region. Neurological: CN II-XII intact, intact motor, intact sensation. Psychiatric: normal mood. Skin: warm, normal color Constitutional Vitals: Vital Signs Temp Pulse Resp BP Pulse Ox 98.6 F 78 21 106/59 92 12/15/21 08:01 12/15/21 08:01 12/15/21 08:01 12/15/21 08:01 12/15/21 10:47 Period Temp Pulse Resp BP Sys/[place] Pulse Ox Last 24 Hr 97.8 F-98.6 F 66-101 13-21 100-118/55-76 90-96 Intake and Output 12/14/21 12/15/21 12/15/21 21:59 05:59 13:59 Intake Total 240 600 Output Total 425 Balance 240 175 Weight 189.148 kg Intake & Output: Intake & Output 12/14/21 12/15/21 12/15/21 21:59 05:59 13:59 Intake Total 240 600 Output Total 425 Balance 240 175 Weight 189.148 kg Intake: Oral 240 600 Output: Void Amount 425 Other: Meal Dinner Breakfast Percent of Meal Consumed 100% 50% Feeding Ability Total Assistance Total Assistance Urine Appearance Clear Urine Color Dark Shea OBJ DATA Labs CBC & Chem 7: 12/13/21 17:42 12/15/21 05:22 Labs: Abnormal Lab Results 12/15/21 12/14/21 12/14/21 05:22 16:07 14:12 MCV MCHC RDW D-Dimer ABG Methemoglobin 0.2 L VBG pH 7.29 L VBG pCO2 63.9 H* 81.6 H* VBG pO2 58.3 H 58.1 H VBG HCO3 36.0 H 38.4 H VBG Total CO2 38.0 H 40.9 H VBG O2 Saturation 83.4 H 83.0 H VBG Base Excess 8 H 8 H Carboxyhemoglobin 7.6 H 4.1 H Potassium 5.2 H Carbon Dioxide 32 H POC Total CO2 POC Glucose Calcium 8.4 L POC WB Ioniz Calcium NT-Pro-B Natriuret Pep Albumin 3.0 L Globulin Urine Appearance Urine Protein Urine Urobilinogen Urine Mucus 12/13/21 12/13/21 12/13/21 22:25 18:00 17:42 MCV MCHC RDW D-Dimer 4.99 H ABG Methemoglobin VBG pH VBG pCO2 VBG pO2 VBG HCO3 VBG Total CO2 VBG O2 Saturation VBG Base Excess Carboxyhemoglobin Potassium Carbon Dioxide POC Total CO2 38.0 H POC Glucose 173 H Calcium POC WB Ioniz Calcium 1.07 L NT-Pro-B Natriuret Pep Albumin Globulin Urine Appearance Hazy A Urine Protein 30 A Urine Urobilinogen 2.0 A Urine Mucus Few A 12/13/21 12/13/21 12/13/21 17:42 17:42 17:42 MCV 101.4 H MCHC 30.3 L RDW 17.1 H D-Dimer ABG Methemoglobin 0.3 L VBG pH VBG pCO2 58.9 H VBG pO2 82.6 H VBG HCO3 31.8 H VBG Total CO2 33.6 H VBG O2 Saturation 90.7 H VBG Base Excess 4 H Carboxyhemoglobin 4.6 H Potassium Carbon Dioxide POC Total CO2 POC Glucose Calcium POC WB Ioniz Calcium NT-Pro-B Natriuret Pep 990.8 H Albumin Globulin 4.1 H Urine Appearance Urine Protein Urine Urobilinogen Urine Mucus Meds: Medications Acetaminophen (Acetaminophen 500 Mg Tablet) 1,000 mg PO Q8H [facility]; Protocol Last Admin: 12/15/21 08:33 Dose: 1,000 mg Documented by: Dextrose (Dextrose 50% 50 Ml Vial) 0 ml IV UD PRN PRN Reason: Per Sliding Scale Diagnostic Test (Pha) (Accu-Chek 1 Each Strip) 1 each FS [facility] Last Admin: 12/15/21 07:16 Dose: 1 each Documented by: Enoxaparin Sodium (Enoxaparin 40 Mg/0.4 Ml Syringe) 40 mg SQ BID [facility] Last Admin: 12/15/21 08:32 Dose: 40 mg Documented by: Escitalopram Oxalate (Escitalopram 10 Mg Tablet) 10 mg PO QDAY [facility] Last Admin: 12/15/21 08:34 Dose: 10 mg Documented by: Furosemide (Furosemide 20 Mg Tablet) 20 mg PO QAM [facility] Last Admin: 12/15/21 08:34 Dose: 20 mg Documented by: Glucose (Dextrose 31 Gm Oral.Susp) 15 gm PO PRN PRN PRN Reason: Hypoglycemia Insulin Human Lispro (Insulin Lispro 1 Unit/0.01 Ml Unit) 0 unit SQ [facility]; Protocol Last Admin: 12/15/21 07:17 Dose: Not Given Documented by: Ketorolac Tromethamine (Ketorolac 30 Mg/Ml Vial) 15 mg IV Q6HP PRN PRN Reason: Pain Stop: 12/16/21 09:08 Last Admin: 12/15/21 08:33 Dose: 15 mg Documented by: Ondansetron HCl (Ondansetron 4 Mg/2 Ml Vial) 4 mg IV Q4HP PRN; Protocol PRN Reason: Nausea And Vomiting Oxycodone HCl (Oxycodone Hcl 5 Mg Tablet) 5 mg PO Q6HP PRN; Protocol PRN Reason: Per Pain Protocol Febuxostat 40 Mg (Tablet) 1 dose PO QDAY [facility] Last Admin: 12/15/21 09:58 Dose: Not Given Documented by: Simvastatin (Simvastatin 40 Mg Tablet) 40 mg PO HS [facility] ABG Interpretation ABG results: 12/13/21 12/14/21 12/14/21 17:42 14:12 16:07 ABG Methemoglobin 0.3 L 0.4 0.2 L VBG pH 7.35 7.29 L 7.37 VBG pCO2 58.9 H 81.6 H* 63.9 H* VBG pO2 82.6 H 58.1 H 58.3 H VBG HCO3 31.8 H 38.4 H 36.0 H VBG Total CO2 33.6 H 40.9 H 38.0 H VBG O2 Saturation 90.7 H 83.0 H 83.4 H VBG Base Excess 4 H 8 H 8 H A/P Narrative A/P Narrative: Assessment: 51 year old male with a history of hypertension, hyperlipidemia, type 2 diabetes mellitus, chronic kidney disease stage III, obesity, obstructive sleep apnea currently not compliant with CPAP, probable obesity hypoventilation syndrome who had a fall and was not able to get up, the patient was brought to the emergency department where he was found to have a acute T12 compression fracture and a new oxygen requirement. The cause of hypoxia is likely atelectasis related to restrictive lung disease secondary to morbid obesity and painful respiration secondary to the acute T12 compression fracture. No evidence of an infectious process, no evidence of a pulmonary embolus on CTA chest. Does not appear to be in congestive heart failure. #Acute hypoxic respiratory failure likely due to atelectasis #Acute on chronic hypercapnic respiratory failure #Acute T12 compression fracture #Mild hyperkalemia #Obesity hypoventilation syndrome #Severe obstructive sleep apnea, currently not compliant with CPAP #Type 2 diabetes mellitus #Essential hypertension #Chronic kidney disease stage III, stable #Obesity BMI 63 Plan -Oxygen supplementation, wean as able. -CPAP with naps and at bedtime. -Scheduled Tylenol, as needed IV Toradol, as needed oxycodone. -Repeat potassium and VBG this afternoon. -Respiratory panel 1 and 2. -Correction Humalog SSImedium. -Resume home escitalopram, febuxostat, furosemide. -Hold home pioglitazone, metformin, glipizide, lisinopril, clonidine. -Consistent carbohydrate diet. -PT following, consider TLSO brace if bariatric size available. -DVT prophylaxis: Lovenox -CODE STATUS: Full -Disposition: TBD, possibly SNF for rehab. Time Spent With Patient Time: Total time spent is greater than 50% in coordination of care (as documented) at patient's floor/unit and/or counseling patient: QUALITY VTE Deep Vein Thrombosis/Pulmonary Embolism Present on Admission: No
[2021-12-15 12:22] LABS: ABG Methemoglobin 0.3 % (0.4-1.5); Total Hemoglobin 14.1 gm/Dl (13.5-16.5); VBG Base Excess 9 (-2-3); VBG HCO3 34.4 mmol/L (24.0-28.0); VBG Oxygen Saturation 90.5 % (40.0-70.0); VBG PCO2 51.4 mmHg (41.0-51.0); VBG PH 7.44 U (7.32-7.42); VBG PO2 112.6 mmHg (25.0-40.0); VBG Total CO2 35.9 mmol/L (25.0-29.0)
[2021-12-15] MEDS: oxyCODONE HCL 5 MG TABLET PO PRN (19:30)
[2021-12-15] MEDS: SIMVASTATIN 40 MG TABLET PO SCH (21:06)
[2021-12-16] MEDS: ACETAMINOPHEN 500 MG TABLET PO SCH ×3 (01:41→16:11)
[2021-12-16 06:41] LABS: Albumin 3.1 gm/dL (3.2-5.2); Blood Urea Nitrogen 23 mg/dL (6-20); Calcium 8.7 mg/dL (8.6-10.4); Carbon Dioxide 31 mmol/L (22-30); Chloride 98 mmol/L (96-108); Glomerular Filtration Rate 70; Glucose 83 mg/dL (70-105); Phosphorous 3.7 mg/dL (2.5-4.5)
[2021-12-16] MEDS: INSULIN LISPRO 1 UNIT/0.01 ML UNIT SQ SCH ×4 (07:17→20:14)
[2021-12-16] MEDS: KETOROLAC 30 MG/ML VIAL IV PRN (07:50)
[2021-12-16] MEDS: ESCITALOPRAM 10 MG TABLET PO SCH (08:57)
[2021-12-16] MEDS: ENOXAPARIN 40 MG/0.4 ML SYRINGE SQ SCH ×2 (08:57→20:20)
[2021-12-16] MEDS: FUROSEMIDE 20 MG TABLET PO SCH (08:57)
--- NOTE | 2021-12-16 11:10 | Internal Med Progress Note ---
SUBJECTIVE Subjective Patient information: Note initiated : 12/16/21 at 11:07 am Service Date, if different from initiated Date: [] Patient: Gary Mahmood a 51 y/o M admitted on 12/14/21 for fall. Chief Complaint: [] Interval history: Mr. Mahmood is a 51 year old male with a history of hypertension, hyperlipidemia, type 2 diabetes mellitus, chronic kidney disease stage III, obesity, obstructive sleep apnea currently not compliant with CPAP, probable obesity hypoventilation syndrome who fell and was not able to get up. The patient presented to the emergency department where he was found to have an ox requirement of 5 L/min. Work-up included a CTA chest and CT abdomen pelvis which did not show any evidence of a pulmonary embolus or intra abdominal posttraumatic changes however did show a mild acute T12 compression fracture with 10% loss of vertebral height as well as complete atelectasis in the posterior segment of the right upper lobe and subsegmental atelectasis in both posterior lower lobes. The CT scans also showed atrophy of the left kidney which is not new however progressed since the last available CT image 3 years prior. The patient was admitted for a new oxygen requirement, his oxygen requirement was weaned down to 3.5 L/min. A venous blood gas revealed a pH of 7.35, PCO2 of 58.9. the patient says that he has not been using his CPAP machine because there are not enough electrical outlets in the apartment where he is living. The patient does have significant back pain in the T12 area which is more painful when he takes deep breathing. 12/15 Mental status improved, tolerated CPAP better overnight. Is just into heated high flow nasal cannula oxygen in the morning with mostly high flow as the patient prefers this over noninvasive ventilation. Potassium mildly elevated on morning labs, rechecking in the afternoon. Started oxycodone as needed for back pain secondary to T12 vertebral compression fracture. [place] PCR was negative. Ordered respiratory panel PCR. 12/16 Up to the chair today, back pain better controlled with addition of oxycodone as needed. Respiratory panel was negative. Weaning oxygen supplementation. Physical exam General: Morbidly obese male in no apparent distress Head: Atraumatic, normal inspection. Eyes: normal appearance, no scleral icterus. Neck: full ROM Respiratory: Heated high flow nasal cannula oxygen, no respiratory distress. Cardiovascular: normal rate and rhythm, S1, S2. GI/Abdominal: soft, nontender, no guarding. Extremities: Tenderness to palpation in mid back region. Neurological: CN II-XII intact, intact motor, intact sensation. Psychiatric: normal mood. Skin: warm, normal color Constitutional Vitals: Vital Signs Temp Pulse Resp BP Pulse Ox 97.7 F 84 24 H 117/74 95 12/16/21 07:29 12/16/21 08:01 12/16/21 10:30 12/16/21 08:01 12/16/21 10:30 Period Temp Pulse Resp BP Sys/[place] Pulse Ox Last 24 Hr 97.7 F-98.8 F 76-110 16-25 97-137/52-109 88-95 Intake and Output 12/15/21 12/16/21 12/16/21 21:59 05:59 13:59 Intake Total 620 300 150 Output Total 220 140 200 Balance 400 160 -50 Weight 190.962 kg Intake & Output: Intake & Output 12/15/21 12/16/21 12/16/21 21:59 05:59 13:59 Intake Total 620 300 150 Output Total 220 140 200 Balance 400 160 -50 Weight 190.962 kg Intake: Nourishment/Supplement quantity 50 (ml) Oral 620 300 100 Output: Void Amount 220 140 200 Other: Meal Dinner Breakfast Percent of Meal Consumed 25% 25% Feeding Ability Needs Supervision Needs Supervision Nourishment/Supplement name Glucerna Urine Appearance Clear Clear Clear Urine Color Dark Yellow Dark Yellow Dark Shea Urine Odor Normal Normal OBJ DATA Labs CBC & Chem 7: 12/13/21 17:42 12/16/21 05:23 Labs: Abnormal Lab Results 12/16/21 12/15/21 12/15/21 05:23 11:54 11:54 MCV MCHC RDW D-Dimer ABG Methemoglobin 0.3 L VBG pH 7.44 H VBG pCO2 51.4 H VBG pO2 112.6 H VBG HCO3 34.4 H VBG Total CO2 35.9 H VBG O2 Saturation 90.5 H VBG Base Excess 9 H Carboxyhemoglobin 7.7 H Potassium 5.3 H Carbon Dioxide 31 H POC Total CO2 BUN 23 H POC Glucose Calcium POC WB Ioniz Calcium NT-Pro-B Natriuret Pep Albumin 3.1 L Globulin Urine Appearance Urine Protein Urine Urobilinogen Urine Mucus 12/15/21 12/14/21 12/14/21 05:22 16:07 14:12 MCV MCHC RDW D-Dimer ABG Methemoglobin 0.2 L VBG pH 7.29 L VBG pCO2 63.9 H* 81.6 H* VBG pO2 58.3 H 58.1 H VBG HCO3 36.0 H 38.4 H VBG Total CO2 38.0 H 40.9 H VBG O2 Saturation 83.4 H 83.0 H VBG Base Excess 8 H 8 H Carboxyhemoglobin 7.6 H 4.1 H Potassium 5.2 H Carbon Dioxide 32 H POC Total CO2 BUN POC Glucose Calcium 8.4 L POC WB Ioniz Calcium NT-Pro-B Natriuret Pep Albumin 3.0 L Globulin Urine Appearance Urine Protein Urine Urobilinogen Urine Mucus 12/13/21 12/13/21 12/13/21 22:25 18:00 17:42 MCV MCHC RDW D-Dimer 4.99 H ABG Methemoglobin VBG pH VBG pCO2 VBG pO2 VBG HCO3 VBG Total CO2 VBG O2 Saturation VBG Base Excess Carboxyhemoglobin Potassium Carbon Dioxide POC Total CO2 38.0 H BUN POC Glucose 173 H Calcium POC WB Ioniz Calcium 1.07 L NT-Pro-B Natriuret Pep Albumin Globulin Urine Appearance Hazy A Urine Protein 30 A Urine Urobilinogen 2.0 A Urine Mucus Few A 12/13/21 12/13/21 12/13/21 17:42 17:42 17:42 MCV 101.4 H MCHC 30.3 L RDW 17.1 H D-Dimer ABG Methemoglobin 0.3 L VBG pH VBG pCO2 58.9 H VBG pO2 82.6 H VBG HCO3 31.8 H VBG Total CO2 33.6 H VBG O2 Saturation 90.7 H VBG Base Excess 4 H Carboxyhemoglobin 4.6 H Potassium Carbon Dioxide POC Total CO2 BUN POC Glucose Calcium POC WB Ioniz Calcium NT-Pro-B Natriuret Pep 990.8 H Albumin Globulin 4.1 H Urine Appearance Urine Protein Urine Urobilinogen Urine Mucus Meds: Medications Acetaminophen (Acetaminophen 500 Mg Tablet) 1,000 mg PO Q8H [facility]; Protocol Last Admin: 12/16/21 08:57 Dose: 1,000 mg Documented by: Dextrose (Dextrose 50% 50 Ml Vial) 0 ml IV UD PRN PRN Reason: Per Sliding Scale Diagnostic Test (Pha) (Accu-Chek 1 Each Strip) 1 each FS [facility] Last Admin: 12/16/21 07:17 Dose: 1 each Documented by: Enoxaparin Sodium (Enoxaparin 40 Mg/0.4 Ml Syringe) 40 mg SQ BID [facility] Last Admin: 12/16/21 08:57 Dose: 40 mg Documented by: Escitalopram Oxalate (Escitalopram 10 Mg Tablet) 10 mg PO QDAY [facility] Last Admin: 12/16/21 08:57 Dose: 10 mg Documented by: Furosemide (Furosemide 20 Mg Tablet) 20 mg PO QAM [facility] Last Admin: 12/16/21 08:57 Dose: 20 mg Documented by: Glucose (Dextrose 31 Gm Oral.Susp) 15 gm PO PRN PRN PRN Reason: Hypoglycemia Insulin Human Lispro (Insulin Lispro 1 Unit/0.01 Ml Unit) 0 unit SQ [facility]; Protocol Last Admin: 12/16/21 07:17 Dose: Not Given Documented by: Ondansetron HCl (Ondansetron 4 Mg/2 Ml Vial) 4 mg IV Q4HP PRN; Protocol PRN Reason: Nausea And Vomiting Oxycodone HCl (Oxycodone Hcl 5 Mg Tablet) 5 mg PO Q6HP PRN; Protocol PRN Reason: Per Pain Protocol Last Admin: 12/15/21 19:30 Dose: 5 mg Documented by: Febuxostat 40 Mg (Tablet) 1 dose PO QDAY [facility] Last Admin: 12/16/21 10:52 Dose: Not Given Documented by: Simvastatin (Simvastatin 40 Mg Tablet) 40 mg PO HS [facility] Last Admin: 12/15/21 21:06 Dose: 40 mg Documented by: Sodium Chloride (Sodium Chloride Nasal 1 [place] Bottle) 2 spray CANDY Q1HP PRN PRN Reason: Congestion ABG Interpretation ABG results: 12/13/21 12/14/21 12/14/21 17:42 14:12 16:07 ABG Methemoglobin 0.3 L 0.4 0.2 L VBG pH 7.35 7.29 L 7.37 VBG pCO2 58.9 H 81.6 H* 63.9 H* VBG pO2 82.6 H 58.1 H 58.3 H VBG HCO3 31.8 H 38.4 H 36.0 H VBG Total CO2 33.6 H 40.9 H 38.0 H VBG O2 Saturation 90.7 H 83.0 H 83.4 H VBG Base Excess 4 H 8 H 8 H 12/15/21 11:54 ABG Methemoglobin 0.3 L VBG pH 7.44 H VBG pCO2 51.4 H VBG pO2 112.6 H VBG HCO3 34.4 H VBG Total CO2 35.9 H VBG O2 Saturation 90.5 H VBG Base Excess 9 H A/P Narrative A/P Narrative: Assessment: 51 year old male with a history of hypertension, hyperlipidemia, type 2 diabetes mellitus, chronic kidney disease stage III, obesity, obstructive sleep apnea currently not compliant with CPAP, obesity hypoventilation syndrome who had a fall and was not able to get up, the patient was brought to the [facility] department where he was found to have a acute T12 compression fracture and a new oxygen requirement and acute on chronic hypercapnic respiratory failure. The cause of hypoxia is likely atelectasis related to restrictive lung disease secondary to morbid obesity and painful respiration secondary to the acute T12 compression fracture. No evidence of an infectious process, no evidence of a pulmonary embolus on CTA chest. Does not appear to be in congestive heart failure. #Acute hypoxic respiratory failure likely due to atelectasis #Acute on chronic hypercapnic respiratory failure, probably at baseline now #Acute T12 compression fracture #Obesity hypoventilation syndrome #Severe obstructive sleep apnea, not compliant with CPAP prior to admission #Type 2 diabetes mellitus #Essential hypertension #Chronic kidney disease stage III, stable #Obesity BMI 63 Plan -Oxygen supplementation, wean as able. -CPAP with naps and at bedtime. -Scheduled Tylenol, as needed IV Toradol, as needed oxycodone. -Correction Humalog SSImedium. -Continue home escitalopram, febuxostat, furosemide. -Hold home pioglitazone, metformin, glipizide, lisinopril, clonidine for now -Consistent carbohydrate diet. -PT following, consider TLSO brace if bariatric size available. -DVT prophylaxis: Lovenox -CODE STATUS: DNR/DNI -Disposition: Probably SNF for rehab. Doubt the patient needs to be on prior dose of lisinopril and clonidine given low normal blood pressures during this hospitalization. Time Spent With Patient Time: Total time spent is greater than 50% in coordination of care (as documented) at patient's floor/unit and/or counseling patient: QUALITY VTE Deep Vein Thrombosis/Pulmonary Embolism Present on Admission: No
[2021-12-16] MEDS: SODIUM CHLORIDE NASAL 1 SPRAY BOTTLE NAS PRN ×2 (12:49→17:07)
[2021-12-16] MEDS: 0.9 % SODIUM CHLORIDE 10 ML SYRINGE IV SCH ×2 (16:12→20:20)
[2021-12-16] MEDS: POLYETHYLENE GLYCOL 3350 17 GM PACKET PO PRN (16:12)
[2021-12-16] MEDS: oxyCODONE HCL 5 MG TABLET PO PRN (17:45)
[2021-12-16] MEDS: SIMVASTATIN 40 MG TABLET PO SCH (20:20)
[2021-12-17 02:51] LABS: Appearance,Urine CLEAR (Clear); Bilirubin,Urine Negative (Negative); Color,Urine YELLOW; Culture Indicated,Urine No; Glucose,Urine (UA) Negative (Negative); Ketones,Urine 20 mg/dL (Negative); Leukocyte Esterase,Urine Negative /uL (Negative); Nitrate,Urine Negative (Negative); Protein,Urine Negative (Negative); Specific Gravity,Urine 1.026 (1.000-1.035); Urine Blood Negative (Negative); Urine Hyaline Cast 3 /lph (0-2); Urine RBC 0 /hpf (0-3); Urine Squamous Epithelial Cell 0 /hpf (0-4); Urine WBC 1 /hpf (0-4); Urobilinogen,Urine Negative
[2021-12-17] MEDS: ACETAMINOPHEN 500 MG TABLET PO SCH ×3 (04:30→16:58)
[2021-12-17] MEDS: oxyCODONE HCL 5 MG TABLET PO PRN (04:30)
[2021-12-17] MEDS: 0.9 % SODIUM CHLORIDE 10 ML SYRINGE IV SCH ×2 (05:18→16:17)
[2021-12-17 06:33] LABS: Albumin 3.2 gm/dL (3.2-5.2); Blood Urea Nitrogen 24 mg/dL (6-20); Calcium 8.9 mg/dL (8.6-10.4); Carbon Dioxide 31 mmol/L (22-30); Chloride 98 mmol/L (96-108); Glomerular Filtration Rate 78; Glucose 72 mg/dL (70-105); Phosphorous 3.2 mg/dL (2.5-4.5)
[2021-12-17] MEDS: INSULIN LISPRO 1 UNIT/0.01 ML UNIT SQ SCH ×4 (07:51→21:34)
[2021-12-17] MEDS: FUROSEMIDE 20 MG TABLET PO SCH (07:54)
[2021-12-17] MEDS: ESCITALOPRAM 10 MG TABLET PO SCH (07:54)
[2021-12-17] MEDS: ENOXAPARIN 40 MG/0.4 ML SYRINGE SQ SCH ×2 (07:54→21:34)
--- NOTE | 2021-12-17 10:05 | Internal Med Progress Note ---
SUBJECTIVE Subjective Patient information: Note initiated : 12/17/21 at 10:03 am Service Date, if different from initiated Date: [] Patient: Gary Mahmood a 51 y/o M admitted on 12/14/21 for fall. Chief Complaint: [] Interval history: Mr. Mahmood is a 51 year old male with a history of hypertension, hyperlipidemia, type 2 diabetes mellitus, chronic kidney disease stage III, obesity, obstructive sleep apnea currently not compliant with CPAP, probable obesity hypoventilation syndrome who fell and was not able to get up. The patient presented to the emergency department where he was found to have an ox requirement of 5 L/min. Work-up included a CTA chest and CT abdomen pelvis which did not show any evidence of a pulmonary embolus or intra abdominal posttraumatic changes however did show a mild acute T12 compression fracture with 10% loss of vertebral height as well as complete atelectasis in the posterior segment of the right upper lobe and subsegmental atelectasis in both posterior lower lobes. The CT scans also showed atrophy of the left kidney which is not new however progressed since the last available CT image 3 years prior. The patient was admitted for a new oxygen requirement, his oxygen requirement was weaned down to 3.5 L/min. A venous blood gas revealed a pH of 7.35, PCO2 of 58.9. the patient says that he has not been using his CPAP machine because there are not enough electrical outlets in the apartment where he is living. The patient does have significant back pain in the T12 area which is more painful when he takes deep breathing. 12/15 Mental status improved, tolerated CPAP better overnight. Is just into heated high flow nasal cannula oxygen in the morning with mostly high flow as the patient prefers this over noninvasive ventilation. Potassium mildly elevated on morning labs, rechecking in the afternoon. Started oxycodone as needed for back pain secondary to T12 vertebral compression fracture. [place] PCR was negative. Ordered respiratory panel PCR. 12/16 Up to the chair today, back pain better controlled with addition of oxycodone as needed. Respiratory panel was negative. Weaning oxygen supplementation. 12/17 Transition from heated and humidified high flow nasal cannula to nasal cannula oxygen, feels much better. Pain control satisfactory. Discussed plan for rehab and importance of weight loss strategies including possible bariatric surgery intervention after the patient recovers and rehab. Physical exam General: Morbidly obese male in no apparent distress Head: Atraumatic, normal inspection. Eyes: normal appearance, no scleral icterus. Neck: full ROM Respiratory: Nasal cannula oxygen, no respiratory distress. Cardiovascular: normal rate and rhythm, S1, S2. GI/Abdominal: soft, nontender, no guarding. Extremities: Tenderness to palpation in mid back region. Neurological: CN II-XII intact, intact motor, intact sensation. Psychiatric: normal mood. Skin: warm, normal color Constitutional Vitals: Vital Signs Temp Pulse Resp BP Pulse Ox 98.9 F 89 22 138/74 90 12/17/21 08:01 12/17/21 08:01 12/17/21 08:01 12/17/21 08:01 12/17/21 08:01 Period Temp Pulse Resp BP Sys/[place] Pulse Ox Last 24 Hr 97.7 F-98.9 F 71-95 15-32 103-139/52-80 76-98 Intake and Output 12/16/21 12/17/21 12/17/21 21:59 05:59 13:59 Intake Total 940 Output Total 375 300 Balance 565 -300 Weight 189.692 kg Intake & Output: Intake & Output 12/16/21 12/17/21 12/17/21 21:59 05:59 13:59 Intake Total 940 Output Total 375 300 Balance 565 -300 Weight 189.692 kg Intake: Oral 940 Output: Void Amount 375 300 Other: Meal Dinner Percent of Meal Consumed 0% Feeding Ability Assist with Tray Set Up Urine Appearance Clear Clear Urine Color Dark Shea Dark Yellow Urine Odor Normal OBJ DATA Labs CBC & Chem 7: 12/13/21 17:42 12/17/21 05:12 Labs: Abnormal Lab Results 12/17/21 12/17/21 12/16/21 05:12 02:10 05:23 ABG Methemoglobin VBG pH VBG pCO2 VBG pO2 VBG HCO3 VBG Total CO2 VBG O2 Saturation VBG Base Excess Carboxyhemoglobin Potassium Carbon Dioxide 31 H 31 H BUN 24 H 23 H Calcium Albumin 3.1 L Urine Ketones 20 A Hyaline Casts 3 H 12/15/21 12/15/21 12/15/21 11:54 11:54 05:22 ABG Methemoglobin 0.3 L VBG pH 7.44 H VBG pCO2 51.4 H VBG pO2 112.6 H VBG HCO3 34.4 H VBG Total CO2 35.9 H VBG O2 Saturation 90.5 H VBG Base Excess 9 H Carboxyhemoglobin 7.7 H Potassium 5.3 H 5.2 H Carbon Dioxide 32 H BUN Calcium 8.4 L Albumin 3.0 L Urine Ketones Hyaline Casts 12/14/21 12/14/21 16:07 14:12 ABG Methemoglobin 0.2 L VBG pH 7.29 L VBG pCO2 63.9 H* 81.6 H* VBG pO2 58.3 H 58.1 H VBG HCO3 36.0 H 38.4 H VBG Total CO2 38.0 H 40.9 H VBG O2 Saturation 83.4 H 83.0 H VBG Base Excess 8 H 8 H Carboxyhemoglobin 7.6 H 4.1 H Potassium Carbon Dioxide BUN Calcium Albumin Urine Ketones Hyaline Casts Meds: Medications Acetaminophen (Acetaminophen 500 Mg Tablet) 1,000 mg PO Q8H [facility]; Protocol Last Admin: 12/17/21 07:54 Dose: 1,000 mg Documented by: Dextrose (Dextrose 50% 50 Ml Vial) 0 ml IV UD PRN PRN Reason: Per Sliding Scale Diagnostic Test (Pha) (Accu-Chek 1 Each Strip) 1 each FS [facility] Last Admin: 12/17/21 07:50 Dose: 1 each Documented by: Enoxaparin Sodium (Enoxaparin 40 Mg/0.4 Ml Syringe) 40 mg SQ BID [facility] Last Admin: 12/17/21 07:54 Dose: 40 mg Documented by: Escitalopram Oxalate (Escitalopram 10 Mg Tablet) 10 mg PO QDAY [facility] Last Admin: 12/17/21 07:54 Dose: 10 mg Documented by: Furosemide (Furosemide 20 Mg Tablet) 20 mg PO QAM [facility] Last Admin: 12/17/21 07:54 Dose: 20 mg Documented by: Glucose (Dextrose 31 Gm Oral.Susp) 15 gm PO PRN PRN PRN Reason: Hypoglycemia Insulin Human Lispro (Insulin Lispro 1 Unit/0.01 Ml Unit) 0 unit SQ [facility]; Protocol Ondansetron HCl (Ondansetron 4 Mg/2 Ml Vial) 4 mg IV Q4HP PRN; Protocol PRN Reason: Nausea And Vomiting Oxycodone HCl (Oxycodone Hcl 5 Mg Tablet) 5 mg PO Q6HP PRN; Protocol PRN Reason: Per Pain Protocol Last Admin: 12/17/21 04:30 Dose: 5 mg Documented by: Febuxostat 40 Mg (Tablet) 1 dose PO QDAY [facility] Last Admin: 12/17/21 08:04 Dose: Not Given Documented by: Polyethylene Glycol (Polyethylene Glycol 3350 17 Gm Packet) 17 gm PO DAILYP PRN PRN Reason: Constipation Last Admin: 12/16/21 16:12 Dose: 17 gm Documented by: Simvastatin (Simvastatin 40 Mg Tablet) 40 mg PO HS [facility] Last Admin: 12/16/21 20:20 Dose: 40 mg Documented by: Sodium Chloride (Sodium Chloride Nasal 1 [place] Bottle) 2 spray CANDY Q1HP PRN PRN Reason: Congestion Last Admin: 12/16/21 17:07 Dose: 2 spray Documented by: Sodium Chloride (0.9 % Sodium Chloride 10 Ml Syringe) 10 ml IV Q8 [facility] Last Admin: 12/17/21 05:18 Dose: 10 ml Documented by: ABG Interpretation ABG results: 12/13/21 12/14/21 12/14/21 17:42 14:12 16:07 ABG Methemoglobin 0.3 L 0.4 0.2 L VBG pH 7.35 7.29 L 7.37 VBG pCO2 58.9 H 81.6 H* 63.9 H* VBG pO2 82.6 H 58.1 H 58.3 H VBG HCO3 31.8 H 38.4 H 36.0 H VBG Total CO2 33.6 H 40.9 H 38.0 H VBG O2 Saturation 90.7 H 83.0 H 83.4 H VBG Base Excess 4 H 8 H 8 H 12/15/21 11:54 ABG Methemoglobin 0.3 L VBG pH 7.44 H VBG pCO2 51.4 H VBG pO2 112.6 H VBG HCO3 34.4 H VBG Total CO2 35.9 H VBG O2 Saturation 90.5 H VBG Base Excess 9 H A/P Narrative A/P Narrative: Assessment: 51 year old male with a history of hypertension, hyperlipidemia, type 2 diabetes mellitus, chronic kidney disease stage III, obesity, obstructive sleep apnea currently not compliant with CPAP, obesity hypoventilation syndrome who had a fall and was not able to get up, the patient was brought to the emergency department where he was found to have a acute T12 compression fracture and a new oxygen requirement and acute on chronic hypercapnic respiratory failure. The cause of hypoxia is likely atelectasis related to restrictive lung disease secondary to morbid obesity and painful respiration secondary to the acute T12 compression fracture. No evidence of an infectious process, no evidence of a pulmonary embolus on CTA chest. Does not appear to be in congestive heart failure. #Acute hypoxic respiratory failure likely due to atelectasis #Acute on chronic hypercapnic respiratory failure, probably at baseline now #Acute T12 compression fracture #Obesity hypoventilation syndrome #Severe obstructive sleep apnea, not compliant with CPAP prior to admission #Type 2 diabetes mellitus #Essential hypertension #Chronic kidney disease stage III, stable #Obesity BMI 63 (life-threatening) Plan -Oxygen supplementation, wean as able. -CPAP with naps and at bedtime. -Scheduled Tylenol, as needed IV Toradol, as needed oxycodone. -Correction Humalog SSImedium. -Continue home escitalopram, febuxostat, furosemide. -Hold home pioglitazone, metformin, glipizide, lisinopril, clonidine for now -Consistent carbohydrate diet. -PT following. -DVT prophylaxis: Lovenox -CODE STATUS: DNR/DNI -Disposition: Probably SNF for rehab. Doubt the patient needs to be on prior dose of lisinopril and clonidine given low normal blood pressures during this hospitalization. Recommend the patient have a referral to bariatric surgery aft er discharge for life threatening obesity. Time Spent With Patient Time: Total time spent is greater than 50% in coordination of care (as documented) at patient's floor/unit and/or counseling patient: QUALITY VTE Deep Vein Thrombosis/Pulmonary Embolism Present on Admission: No
[2021-12-17] MEDS: SIMVASTATIN 40 MG TABLET PO SCH (21:34)
[2021-12-18] MEDS: 0.9 % SODIUM CHLORIDE 10 ML SYRINGE IV SCH ×4 (00:05→21:21)
[2021-12-18] MEDS: ACETAMINOPHEN 500 MG TABLET PO SCH ×5 (01:15→23:45)
[2021-12-18] MEDS: POLYETHYLENE GLYCOL 3350 17 GM PACKET PO PRN (08:20)
[2021-12-18] MEDS: ENOXAPARIN 40 MG/0.4 ML SYRINGE SQ SCH ×2 (08:20→20:22)
[2021-12-18] MEDS: ESCITALOPRAM 10 MG TABLET PO SCH (08:20)
[2021-12-18] MEDS: FUROSEMIDE 20 MG TABLET PO SCH (08:20)
[2021-12-18] MEDS: INSULIN LISPRO 1 UNIT/0.01 ML UNIT SQ SCH ×4 (08:21→20:13)
--- NOTE | 2021-12-18 09:18 | Internal Med Progress Note ---
SUBJECTIVE Subjective Patient information: Note initiated : 12/18/21 at 9:16 am Service Date, if different from initiated Date: [] Patient: Gary Mahmood a 51 y/o M admitted on 12/14/21 for fall. Chief Complaint: [] Interval history: Mr. Mahmood is a 51 year old male with a history of hypertension, hyperlipidemia, type 2 diabetes mellitus, chronic kidney disease stage III, obesity, obstructive sleep apnea currently not compliant with CPAP, probable obesity hypoventilation syndrome who fell and was not able to get up. The patient presented to the emergency department where he was found to have an ox requirement of 5 L/min. Work-up included a CTA chest and CT abdomen pelvis which did not show any evidence of a pulmonary embolus or intra abdominal posttraumatic changes however did show a mild acute T12 compression fracture with 10% loss of vertebral height as well as complete atelectasis in the posterior segment of the right upper lobe and subsegmental atelectasis in both posterior lower lobes. The CT scans also showed atrophy of the left kidney which is not new however progressed since the last available CT image 3 years prior. The patient was admitted for a new oxygen requirement, his oxygen requirement was weaned down to 3.5 L/min. A venous blood gas revealed a pH of 7.35, PCO2 of 58.9. the patient says that he has not been using his CPAP machine because there are not enough electrical outlets in the apartment where he is living. The patient does have significant back pain in the T12 area which is more painful when he takes deep breathing. 12/15 Mental status improved, tolerated CPAP better overnight. Is just into heated high flow nasal cannula oxygen in the morning with mostly high flow as the patient prefers this over noninvasive ventilation. Potassium mildly elevated on morning labs, rechecking in the afternoon. Started oxycodone as needed for back pain secondary to T12 vertebral compression fracture. [place] PCR was negative. Ordered respiratory panel PCR. 12/16 Up to the chair today, back pain better controlled with addition of oxycodone as needed. Respiratory panel was negative. Weaning oxygen supplementation. 12/17 Transition from heated and humidified high flow nasal cannula to nasal cannula oxygen, feels much better. Pain control satisfactory. Discussed plan for rehab and importance of weight loss strategies including possible bariatric surgery intervention after the patient recovers and rehab. 12/18 Tolerating CPAP at night, continues to require oxygen supplementation however this is likely reflective of chronic hypoxia. Patient was able to get to the chair today, still having back pain with movement however pain is satisfactorily controlled with pain medications. Case management working on placement. Physical exam General: Morbidly obese male in no apparent distress Head: Atraumatic, normal inspection. Eyes: normal appearance, no scleral icterus. Neck: full ROM Respiratory: Nasal cannula oxygen, no respiratory distress. Cardiovascular: normal rate and rhythm, S1, S2. GI/Abdominal: soft, nontender, no guarding. Extremities: Tenderness to palpation in mid back region. Neurological: CN II-XII intact, intact motor, intact sensation. Psychiatric: normal mood. Skin: warm, normal color Constitutional Vitals: Vital Signs Temp Pulse Resp BP Pulse Ox 98.2 F 94 H 19 94/54 92 12/18/21 07:05 12/18/21 07:05 12/18/21 07:05 12/18/21 07:05 12/18/21 07:54 Period Temp Pulse Resp BP Sys/[place] Pulse Ox Last 24 Hr 97.9 F-98.8 F 80-110 16-26 93-129/42-82 82-95 Intake and Output 12/17/21 12/18/21 12/18/21 21:59 05:59 13:59 Intake Total 170 Output Total 1150 400 Balance -980 -400 Weight 190.554 kg Intake & Output: Intake & Output 12/17/21 12/18/21 12/18/21 21:59 05:59 13:59 Intake Total 170 Output Total 1150 400 Balance -980 -400 Weight 190.554 kg Intake: Nourishment/Supplement quantity 50 (ml) Oral 120 Output: Void Amount 1150 400 Other: Meal Dinner Breakfast Percent of Meal Consumed 25% 25% Feeding Ability Assist with Tray Set Up Nourishment/Supplement name glucerna Urine Appearance Clear Urine Color Dark Yellow Dark Yellow Urine Odor Normal OBJ DATA Labs CBC & Chem 7: 12/13/21 17:42 12/17/21 05:12 Labs: Abnormal Lab Results 12/17/21 12/17/21 12/16/21 05:12 02:10 05:23 ABG Methemoglobin VBG pH VBG pCO2 VBG pO2 VBG HCO3 VBG Total CO2 VBG O2 Saturation VBG Base Excess Carboxyhemoglobin Potassium Carbon Dioxide 31 H 31 H BUN 24 H 23 H Albumin 3.1 L Urine Ketones 20 A Hyaline Casts 3 H 12/15/21 12/15/21 11:54 11:54 ABG Methemoglobin 0.3 L VBG pH 7.44 H VBG pCO2 51.4 H VBG pO2 112.6 H VBG HCO3 34.4 H VBG Total CO2 35.9 H VBG O2 Saturation 90.5 H VBG Base Excess 9 H Carboxyhemoglobin 7.7 H Potassium 5.3 H Carbon Dioxide BUN Albumin Urine Ketones Hyaline Casts Meds: Medications Acetaminophen (Acetaminophen 500 Mg Tablet) 1,000 mg PO Q8H [facility]; Protocol Last Admin: 12/18/21 04:35 Dose: 1,000 mg Documented by: Dextrose (Dextrose 50% 50 Ml Vial) 0 ml IV UD PRN PRN Reason: Per Sliding Scale Diagnostic Test (Pha) (Accu-Chek 1 Each Strip) 1 each FS [facility] Last Admin: 12/18/21 07:05 Dose: 1 each Documented by: Enoxaparin Sodium (Enoxaparin 40 Mg/0.4 Ml Syringe) 40 mg SQ BID [facility] Last Admin: 12/18/21 08:20 Dose: 40 mg Documented by: Escitalopram Oxalate (Escitalopram 10 Mg Tablet) 10 mg PO QDAY [facility] Last Admin: 12/18/21 08:20 Dose: 10 mg Documented by: Furosemide (Furosemide 20 Mg Tablet) 20 mg PO QAM [facility] Last Admin: 12/18/21 08:20 Dose: 20 mg Documented by: Glucose (Dextrose 31 Gm Oral.Susp) 15 gm PO PRN PRN PRN Reason: Hypoglycemia Insulin Human Lispro (Insulin Lispro 1 Unit/0.01 Ml Unit) 0 unit SQ [facility]; Protocol Last Admin: 12/18/21 08:21 Dose: Not Given Documented by: Ondansetron HCl (Ondansetron 4 Mg/2 Ml Vial) 4 mg IV Q4HP PRN; Protocol PRN Reason: Nausea And Vomiting Oxycodone HCl (Oxycodone Hcl 5 Mg Tablet) 5 mg PO Q6HP PRN; Protocol PRN Reason: Per Pain Protocol Last Admin: 12/17/21 04:30 Dose: 5 mg Documented by: Febuxostat 40 Mg (Tablet) 1 dose PO QDAY [facility] Last Admin: 12/18/21 08:21 Dose: Not Given Documented by: Polyethylene Glycol (Polyethylene Glycol 3350 17 Gm Packet) 17 gm PO DAILYP PRN PRN Reason: Constipation Last Admin: 12/18/21 08:20 Dose: 17 gm Documented by: Simvastatin (Simvastatin 40 Mg Tablet) 40 mg PO HS [facility] Last Admin: 12/17/21 21:34 Dose: 40 mg Documented by: Sodium Chloride (Sodium Chloride Nasal 1 [place] Bottle) 2 spray CANDY Q1HP PRN PRN Reason: Congestion Last Admin: 12/16/21 17:07 Dose: 2 spray Documented by: Sodium Chloride (0.9 % Sodium Chloride 10 Ml Syringe) 10 ml IV Q8 [facility] Last Admin: 12/18/21 05:51 Dose: 10 ml Documented by: ABG Interpretation ABG results: 12/13/21 12/14/21 12/14/21 17:42 14:12 16:07 ABG Methemoglobin 0.3 L 0.4 0.2 L VBG pH 7.35 7.29 L 7.37 VBG pCO2 58.9 H 81.6 H* 63.9 H* VBG pO2 82.6 H 58.1 H 58.3 H VBG HCO3 31.8 H 38.4 H 36.0 H VBG Total CO2 33.6 H 40.9 H 38.0 H VBG O2 Saturation 90.7 H 83.0 H 83.4 H VBG Base Excess 4 H 8 H 8 H 12/15/21 11:54 ABG Methemoglobin 0.3 L VBG pH 7.44 H VBG pCO2 51.4 H VBG pO2 112.6 H VBG HCO3 34.4 H VBG Total CO2 35.9 H VBG O2 Saturation 90.5 H VBG Base Excess 9 H A/P Narrative A/P Narrative: Assessment: 51 year old male with a history of hypertension, hyperlipidemia, type 2 diabetes mellitus, chronic kidney disease stage III, obesity, obstructive sleep apnea currently not compliant with CPAP, obesity hypoventilation syndrome who had a fall and was not able to get up, the patient was brought to the emergency department where he was found to have a acute T12 compression fracture and a new oxygen requirement and acute on chronic hypercapnic respiratory failure. The cause of hypoxia is likely atelectasis related to restrictive lung disease secondary to morbid obesity and painful respiration secondary to the acute T12 compression fracture. No evidence of an infectious process, no evidence of a pulmonary embolus on CTA chest. Does not appear to be in congestive heart failure. #Probably chronic hypoxic respiratory failure due to restrictive lung disease due to obesity, obesity hypoventilation syndrome, and severe obstructive sleep apnea #Chronic hypercapnic respiratory failure, probably at baseline now #Resolved acute on chronic hypercapnic respiratory failure #Acute T12 compression fracture #Obesity hypoventilation syndrome #Severe obstructive sleep apnea, not compliant with CPAP prior to admission #Type 2 diabetes mellitus #Essential hypertension #Chronic kidney disease stage III, stable #Obesity BMI 63 (life-threatening) Plan -Oxygen supplementation, wean as able. -CPAP with naps and at bedtime. -Scheduled Tylenol, as needed IV Toradol, as needed oxycodone. -Correction Humalog SSIlow -Continue home escitalopram, febuxostat, furosemide. -Hold home pioglitazone, metformin, glipizide, lisinopril, clonidine for now -Consistent carbohydrate diet. -PT following. -DVT prophylaxis: Lovenox -CODE STATUS: DNR/DNI -Disposition: Probably SNF for rehab. Doubt the patient needs to be on prior dose of lisinopril and clonidine given low normal blood pressures during this hospitalization. Recommend the patient have a referral to bariatric surgery after discharge for life threatening obesity. Time Spent With Patient Time: Total time spent is greater than 50% in coordination of care (as documented) at patient's floor/unit and/or counseling patient: QUALITY VTE Deep Vein Thrombosis/Pulmonary Embolism Present on Admission: No
[2021-12-18] MEDS: SIMVASTATIN 40 MG TABLET PO SCH (20:13)
[2021-12-19] MEDS: 0.9 % SODIUM CHLORIDE 10 ML SYRINGE IV SCH (05:42)
[2021-12-19] MEDS: INSULIN LISPRO 1 UNIT/0.01 ML UNIT SQ SCH ×2 (06:38→10:27)
[2021-12-19] MEDS: ENOXAPARIN 40 MG/0.4 ML SYRINGE SQ SCH (08:08)
[2021-12-19] MEDS: FUROSEMIDE 20 MG TABLET PO SCH (08:08)
[2021-12-19] MEDS: ESCITALOPRAM 10 MG TABLET PO SCH (08:08)
--- NOTE | 2021-12-19 08:54 | Discharge Summary ---
Discharge Provider Provider Patient information: Note initiated : 12/19/21 at 8:48 am Service Date, if different from initiated Date: [] Patient: Gary Mahmood 51 y/o M admitted on 12/14/21 for fall. Chief Complaint: [] Date of admission: 12/14/21 03:38 Discharge date: 12/19/21 Primary care physician: Unknown Unknown Consults: 12/13/21 Consult to Physician [CONS] Stat Comment: Consulting Provider: Jose Angel Hanna Reason For Exam: Physician to Consult Discharge Meds Discharge Medications Home Medications Accu-Chek Brigida Plus Meter (blood-glucose meter) #1 each NS 05/05/15 [Rx Confirmed 12/14/21 Last Taken Unknown] Accu-Chek Softclix Lancets (lancets) #100 each NS 05/12/15 [Rx Confirmed 12/14/21 Last Taken Unknown] calcitriol 0.25 mcg capsule 0.25 mcg PO QDAY cap 05/12/15 [History Confirmed 12/14/21 Last Taken Unknown] pravastatin 80 mg tablet (Pravachol) 80 mg PO QHS 90 Days #90 tab 01/30/16 [Rx Confirmed 12/14/21 Last Taken Unknown] blood sugar diagnostic (Accu-Chek Brigida Plus test strp) #100 each 04/23/16 [Rx Confirmed 12/14/21 Last Taken Unknown] magnesium oxide 400 mg (241.3 mg magnesium) tablet 400 mg PO QDAY #90 tab 04/23/16 [Rx Confirmed 12/14/21 Last Taken Unknown] potassium chloride 10 mEq tablet,extended release (Klor-Con) 10 meq PO QDAY 90 Days #90 tab 04/23/16 [Rx Confirmed 12/14/21 Last Taken Unknown] cholecalciferol (vitamin D3) 50 mcg (2,000 unit) tablet 100 mcg PO QDAY 12/14/21 [History Confirmed 12/14/21 Last Taken Unknown] escitalopram oxalate 10 mg tablet 10 mg PO QDAY 12/14/21 [History Confirmed 12/14/21 Last Taken Unknown] febuxostat 40 mg tablet 40 mg PO QDAY 12/14/21 [History Confirmed 12/14/21 Last Taken Unknown] furosemide 20 mg tablet 20 mg PO QAM 12/14/21 [History Confirmed 12/14/21 Last Taken Unknown] glipizide 5 mg tablet, extended release 24 hr 5 mg PO QDAY 12/14/21 [History Confirmed 12/14/21 Last Taken Unknown] pioglitazone 15 mg-metformin 500 mg tablet 1 tab PO QDAY 12/14/21 [History Confirmed 12/14/21 Last Taken Unknown] acetaminophen 500 mg tablet 500 mg PO Q4H PRN #30 tab 12/19/21 [Rx Last Taken Unknown] oxycodone-acetaminophen 5 mg-325 mg tablet (Percocet) 1 tab PO Q4H PRN #10 tab 12/19/21 [Rx Last Taken Unknown] polyethylene glycol 3350 17 gram oral powder packet (HealthyLax) 17 g PO DAILYP PRN #30 ea 12/19/21 [Rx Last Taken Unknown] COURSE Hospital Course Hospital course: Mr. Mahmood is a 51 year old male with a history of hypertension, hyperlipidemia, type 2 diabetes mellitus, chronic kidney disease stage III, obesity, obstructive sleep apnea currently not compliant with CPAP, probable obesity hypoventilation syndrome who fell and was not able to get up. The patient presented to the emergency department where he was found to have an ox requirement of 5 L/min. Work-up included a CTA chest and CT abdomen pelvis which did not show any evidence of a pulmonary embolus or intra abdominal posttraumatic changes however did show a mild acute T12 compression fracture with 10% loss of vertebral height as well as complete atelectasis in the posterior segment of the right upper lobe and subsegmental atelectasis in both posterior lower lobes. The CT scans also showed atrophy of the left kidney which is not new however progressed since the last available CT image 3 years prior. The patient was admitted for a new oxygen requirement, his oxygen requirement was weaned down to 3.5 L/min. A venous blood gas revealed a pH of 7.35, PCO2 of 58.9. the patient says that he has not been using his CPAP machine because there are not enough electrical outlets in the apartment where he is living. The patient does have significant back pain in the T12 area which is more painful when he takes deep breathing. 12/15 Mental status improved, tolerated CPAP better overnight. Is just into heated high flow nasal cannula oxygen in the morning with mostly high flow as the patient prefers this over noninvasive ventilation. Potassium mildly elevated on morning labs, rechecking in the afternoon. Started oxycodone as needed for back pain secondary to T12 vertebral compression fracture. [place] PCR was negative. Ordered respiratory panel PCR. 12/16 Up to the chair today, back pain better controlled with addition of oxycodone as needed. Respiratory panel was negative. Weaning oxygen supplementation. 12/17 Transition from heated and humidified high flow nasal cannula to nasal cannula oxygen, feels much better. Pain control satisfactory. Discussed plan for rehab and importance of weight loss strategies including possible bariatric surgery intervention after the patient recovers and rehab. 12/18 Tolerating CPAP at night, continues to require oxygen supplementation however this is likely reflective of chronic hypoxia. Patient was able to get to the chair today, still having back pain with movement however pain is satisfactorily controlled with pain medications. Case management working on placement. 12/19 [facility] to a [facility]. After rehab, I recommend the patient have a referral to bariatric surgery. The patient would probably be a a candidate bariatric surgery given his BMI of 64 and multiple life- threatening health conditions secondary to obesity. Physical exam General: Morbidly obese male in no apparent distress Head: Atraumatic, normal inspection. Eyes: normal appearance, no scleral icterus. Neck: full ROM Respiratory: Nasal cannula oxygen, no respiratory distress. Cardiovascular: normal rate and rhythm, S1, S2. GI/Abdominal: soft, nontender, no guarding. Extremities: Tenderness to palpation in mid back region. Neurological: CN II-XII intact, intact motor, intact sensation. Psychiatric: normal mood. Skin: warm, normal color Discharge diagnosis: Acute back pain secondary to acute T12 compression fracture Secondary discharge diagnosis: Acute T12 compression fracture secondary to mechanical fall Severe obstructive sleep apnea Obesity hypoventilation syndrome Chronic hypercapnic respiratory failure secondary to obesity Hypoxia, likely chronic probably secondary to restrictive lung disease secondary to obesity Morbid obesity Time Spent with Patient Time attestation: Total time spent providing and/or coordinating discharge services: EXAM Constitutional Vitals: Temp Pulse Resp BP Pulse Ox 97.2 F 93 H 17 104/52 96 12/19/21 08:10 12/19/21 08:10 12/19/21 08:10 12/19/21 08:10 12/19/21 08:10 Discharge Plan Patient/Caregiver Discharge Instructions Activity: as per physical therapy Diet: Consistent Carbohydrate Activity Restrictions/Additional Instructions: CPAP at bedtime and with naps. Oxygen supplementation to target pulse oximetry saturations of 88-92%. Prescriptions: New acetaminophen 500 mg Tablet 500 mg PO Q4H PRN (Reason: pain) Qty: 30 0RF polyethylene glycol 3350 [HealthyLax] 17 gram Powder In Packet 17 g PO DAILYP PRN (Reason: Constipation) Qty: 30 2RF oxycodone-acetaminophen [Percocet] 5-325 mg tablet 1 tab PO Q4H PRN (Reason: pain) Qty: 10 0RF Continued (DME) blood-glucose meter [Accu-Chek Brigida Plus Meter] mis See Dose Instructions .ROUTE .MEDSUPPLY Qty: 1 0RF Dose Instruction: As directed Rx Instructions: As directed pravastatin [Pravachol] 80 mg tablet 80 mg PO QHS 90 Days Qty: 90 3RF potassium chloride [Klor-Con 10] 10 mEq tablet extended release 10 meq PO QDAY 90 Days Qty: 90 3RF magnesium oxide 400 mg tablet 400 mg PO QDAY Qty: 90 3RF (DME) blood sugar diagnostic [Accu-Chek Brigida Plus test strp] strip See Dose Instructions .ROUTE .MEDSUPPLY Qty: 100 3RF Dose Instruction: As directed Rx Instructions: As directed, Test blood sugars once daily calcitriol 0.25 mcg capsule 0.25 mcg PO QDAY 0RF (DME) lancets [Accu-Chek Softclix Lancets] misc See Dose Instructions .ROUTE .MEDSUPPLY Qty: 100 0RF Dose Instruction: As directed Rx Instructions: As directed test once daily glipizide 5 mg Tablet Extended Release 24 Hr 5 mg PO QDAY 0RF furosemide 20 mg Tablet 20 mg PO QAM 0RF escitalopram oxalate 10 mg Tablet 10 mg PO QDAY 0RF pioglitazone-metformin 15-500 mg Tablet 1 tab PO QDAY 0RF cholecalciferol (vitamin D3) 50 mcg (2,000 unit) Tablet 100 mcg PO QDAY 0RF febuxostat 40 mg Tablet 40 mg PO QDAY 0RF Discontinued clonidine HCl 0.1 mg Tablet 0.1 mg PO QHS 0RF lisinopril 20 mg Tablet 20 mg PO QDAY 0RF Other Ambulatory Orders: OT Discharge Order (Routine) Location: None Selected Ordered By: Jose Angel Hanna Physical Therapy at Discharge - General (Routine) Location: None Selected Ordered By: Jose Angel Hanna Follow Up Plan Follow up with: Andrew Macias [Physician] - Patient Disposition: Xfer SNF Prognosis: Fair Rehab Potential: Fair I certify that the patient requires SNF services: Yes Overall status at discharge: patient is progressing back to baseline Discharge Orders: Discharge Order (Routine); Ordered 12/19/21 Ordered By: Jose Angel Hanna QUALITY VTE Deep Vein Thrombosis/Pulmonary Embolism Present on Admission: No
[2021-12-19] MEDS: ACETAMINOPHEN 500 MG TABLET PO SCH (09:02)
[2021-12-19] MEDS ORDERED: MINERAL OIL 1 DOSE ENEMA PR ONE (11:10)
== END 2021-12-19 13:39 | DRG 551 ==
LOC: ED 17:28 → ICU 12-14 03:38
PROVIDERS: ADMIT Internal Medicine; ATTEND Internal Medicine